=== PATIENT | male | born 1995 | race Caucasian/White ===

== ENCOUNTER 2017-08-08 07:17 | Emergency (ER) | payer SELFPAY ==
[2017-08-08] VITALS (15 sets, daily range): BP systolic 127–137; BP diastolic 77–79; PULSE 64–98; RESP 16–18; TEMP 36.7; O2SAT 98–100; BMI 18.2
--- NOTE | 2017-08-08 07:49 | ED.VISSUMM ---
- ER Visit Summary Date of Service: 08/08/17 Chief Complaint: Depressed with suicidal ideation History of Present Illness: The patient is a 21 M history of depression and bipolar disorder. Multiple prior suicide attempts in the past. His last mental health hospitalization was in [place] a little over a year ago. He states he has been depressed for 5 months. And has been contemplating suicide. Previously he has attempted overdose, hanging, laceration attempts. He has been hospitalized multiple times. Currently he is under no psychiatric care. He states he has a primary care physician but does not remember their name. He does have a plan to overdose if this continues to go on. Physical Examination: Well-appearing young male. Vital signs are stable and afebrile. He does not appear septic or toxic. Currently I do not smell alcohol. I do not see any obvious signs of a toxidrome. He does state he used drugs yesterday. HEENT exam unremarkable. Neck nontender. No signs of trauma. Lungs clear to auscultation bilaterally. Heart regular rate and rhythm no murmur. Abdomen soft and nontender. Normal bowel sounds. He is moving all 4 extremities. They are neurovascularly intact. Nontender without edema. No signs of trauma. He does have track adams in his left antecubital area. Back exam nontender. Neurologically is awake and alert with no focal motor deficits. Test Results: CBC normal. BMP unremarkable except for a potassium of 3.2. Alcohol level negative. Toxicology screen positive for methamphetamines, amphetamines, cannabis and cocaine. Emergency Department Course and Treatment: Patient will undergo ED mental health screening labs and a crisis evaluation. Treatment Plan: Repeat exam patient is doing well at 09 15. Awaiting for crisis evaluation. Disposition: Transfer to a psychiatric facility Impression: Acute depression with suicidal ideation History of depression and bipolar disorder History of prior suicide attempts Illicit drug abuse This note was generated with [employer] dictation software. It may contain incorrect words, spelling, and punctuation that were not noted in review of the chart prior to signing ED Disposition - Plan for ED Patient: Chief Complaint: Suicidal Referrals: Care Physician,No Primary [Primary Care Provider] -
[2017-08-08 07:51] LABS: Absolute Lymphocyte Count 2.05 X10^3/ul (0.83-4.51); Absolute Neutrophil Count 5.8 X10^3/uL (2.0-7.7); Basophil# 0.04 X10^3/uL; Basophil% 0.5 % (0-1); Eosinophil# 0.12 X10^3/uL; Eosinophils% 1.4 % (0-5); Hematocrit 43.4 % (40-54); Hemoglobin 15.7 g/dl (13.0-16.5); Lymphocyte # 2.05 X10^3/ul (4.0); Lymphocyte % 23.7 % (19-41); Mean Corp Hgb Conc 36.2 g/gl (32-36); Mean Corpuscular Hgb 30.8 pg (27.0-32.0); Mean Corpuscular Volume 85.1 fL (80-94); Mean Platelet Vol. 10.7 fl (6.2-12.0); Monocyte# 0.62 X10^3/uL; Monocyte% 7.2 % (0-10); Neutrophil # 5.82 X10^3/uL (2.7-7.7); Neutrophil % 67.1 % (47-70); Platelet Count 245 K/mm3 (150-450); RBC Distribution Width CV 13.3 % (11.6-14.6); White Blood Count 8.7 K/mm3 (4.4-11.0)
[2017-08-08 07:52] LABS: POSITIVE COUNT NO; POSITIVE DIFFERENTIAL NO; POSITIVE MORPHOLOGY NO
[2017-08-08 08:03] LABS: Anion Gap 7 (5-15); BUN 9 mg/dL (7-18); BUN/Creat Ratio 8.7 RATIO (10-20); Calcium,Total 9.3 mg/dL (8.5-10.1); Chloride 100 mmol/L (98-107); Creatinine, Serum 1.04 mg/dL (0.70-1.30); EST Glomerular Filtration Rate 94 mL/min (>60); Est Glom Filt Rate - Afr Amer 114 mL/min (>60); Glucose 73 mg/dL (74-106); Potassium 3.2 mmol/L (3.5-5.1); Sodium Level 137 mmol/L (136-145)
[2017-08-08 08:35] LABS: Alcohol, Blood (Medical)-Serum < 3.0 mg/dL
[2017-08-08 08:46] LABS: Amphetamine Urine VISTA POSITIVE (<1000 ng/mL); Barbiturate Urine VISTA NEGATIVE (< 200 ng/mL); Benzodiazepine Urine VISTA NEGATIVE (< 200 ng/mL); Cocaine Urine VISTA POSITIVE (< 300 ng/mL); Ecstacy Urine VISTA POSITIVE (< 500 ng/mL); Methadone Urine VISTA NEGATIVE (< 300 ng/mL); PCP Urine VISTA NEGATIVE (< 25 ng/mL); THC Urine VISTA POSITIVE (< 50 ng/mL); Vista UDS pH Range 6
--- NOTE | 2017-08-08 09:21 | NURSING ---
CALLED CRISIS, AMMON SHOULD BE ON HER WAY IN TO SEE PATIENT
--- NOTE | 2017-08-08 09:30 | NURSING ---
AMMON, CRISIS, HERE FOR PATIENT
[2017-08-08] MEDS: Ziprasidone IM 20 MG/ML VIAL IM (10:01)
--- NOTE | 2017-08-08 10:01 | ED.RN ---
PT REQUESTING TO LEAVE. PT STATES I DO NOT UNDERSTAND WHY I CAN'T LEAVE I CAME HERE ON MY OWN. THIS NURSE EXPLAINED TO THE PT THAT HE IS PINK SLIPPED AND HE IS NOT ABLE TO LEAVE. PT BECOMING INCREASING AGITATED. THIS NURSE SPOKE WITH THE PT ABOUT GIVING HIM A MEDICATION TO HELP HIM RELAX. PT AGREED TO RECEIVING MIREILLE HICKMAN.
--- NOTE | 2017-08-08 10:21 | ED.RN ---
Mother called hospital stating that the patient keeps calling her and stating that there are men chasing him with baseball bats and dogs. This nurse spoke with the patient regarding continuously calling his mother and patient stated that he will continue to do so. This nurse removed the phone from the patients room at this time. Will reassess patient using it in a few hours. Patient reports understanding on why the phone was removed from his room.
--- NOTE | 2017-08-08 10:44 | EKG12_ITS ---
Test Reason : MENTAL HEALTH Blood Pressure : / mmHG Vent. Rate : 090 BPM Atrial Rate : 090 BPM P-R Int : 124 ms QRS Dur : 100 ms QT Int : 372 ms P-R-T Axes : 053 016 078 degrees QTc Int : 455 ms Poor data quality, interpretation may be adversely affected Normal sinus rhythm with sinus arrhythmia Nonspecific St segment abnormality Confirmed by KAREN SAN, ROSALIA ([id number]), assistant production editor TYSHAWN BEAN ([id number] on 08/10/2017 2:49:35 PM Referred By: MOSES Confirmed By:ROSALIA JONES MD
[2017-08-08 11:07] LABS: AST(SGOT) 20 U/L (15-37); Alanine Aminotransfer ALT/SGPT 30 U/L (16-61); Albumin, Serum 4.9 g/dL (3.2-5.0); Alkaline Phosphatase 62 U/L (45-117); Bilirubin, Direct 0.32 mg/dL (0.00-0.30); Globulin 3.8 g/dL (2.2-4.2); Protein, Total 8.7 g/dL (6.4-8.2)
--- NOTE | 2017-08-08 11:59 | NURSING ---
FAXED EKG AND LIVER PANEL TO [facility]
--- NOTE | 2017-08-08 13:15 | NURSING ---
REFAXED EKG AND LIVER PANEL TO [facility]
--- NOTE | 2017-08-08 14:28 | NURSING ---
CALLED JOESPH MONTOYA. PATIENT IS ACCEPTED, BUT THERE ARE 4 PEOPLE AHEAD OF HIM. SHE SAID MAYBE THIS EVENING.
[2017-08-08] MEDS: DiphenhydrAMINE 25 MG Capsule PO (22:23)
[2017-08-09 00:14] VITALS: RESP 18; O2SAT 97
[2017-08-09 01:37] VITALS: BP 128/66; PULSE 68; RESP 16; O2SAT 100
[2017-08-09 02:02] VITALS: BP 128/66; PULSE 68; RESP 16; O2SAT 100
== END 2017-08-09 02:03 ==
LOC: ED 08:08
PROVIDERS: Emergency Provider Emergency Medicine
DX: F31.9 Bipolar disorder, unspecified (principal); R45.851 Suicidal ideations; F14.10 Cocaine abuse, uncomplicated; F12.10 Cannabis abuse, uncomplicated; Z91.5 Personal history of self-harm; Z72.0 Tobacco use
CPT/HCPCS: 36415; 80048; 80076; 80307; 80320; 85025; 93005; 96372; 99284; G0480; J3486

== ENCOUNTER 2017-08-23 13:16 | Emergency (ER) | payer SELFPAY ==
[2017-08-23 13:17] VITALS: BP 132/81; PULSE 88; RESP 16; TEMP 36.6; O2SAT 97; BMI 19.0
--- NOTE | 2017-08-23 13:30 | ED.VISSUMM ---
- ER Visit Summary Date of Service: 08/23/17 Chief Complaint: Anxiety, neck spasm. History of Present Illness: The patient is a 21 M who presents feeling nervous, he also had an episode of some neck spasm that resolved prior to arrival. This happened about an hour after he got arrested. He is on Geodon and Lamictal. Currently his symptoms are almost fully resolved. No chest pain shortness of breath. No headache or head injury. No vision changes. No history of weakness or neurological deficits. Physical Examination: Not appear in acute distress. Moist mucous membranes, no obvious facial deformity No C-spine tenderness supple neck. No tenderness to palpation. Regular rate and rhythm without any obvious murmurs Clear lungs bilaterally speaking in full sentences without any obvious respiratory distress Abdomen soft and nontender no guarding or rebound Moves all extremities without any difficulty or pain. Skin does not show any obvious rashes or lesions, no trauma. Alert oriented ?3 with no gross focal deficit. No noticed tremor. Emergency Department Course and Treatment: Patient just cried torticollis, this improved. It is possible with Geodon, he is also on Lamictal but this is unlikely agent. Most of his symptoms have improved, and he is mostly asymptomatic. I will treat him symptomatically from the emergency department. He is to watch out in the next few days if this happens again his medications may need to be changed. He understands that if he has fever or chills he is to return to the emergency department right away as this may be a life-threatening symptom. Disposition: Discharge Impression: Anxiety This note was generated with [employer] dictation software. It may contain incorrect words, spelling, and punctuation that were not noted in review of the chart prior to signing ED Disposition - Plan for ED Patient: Disposition: Home or Assisted Living Chief Complaint: General Illness Referrals: Care Physician,No Primary [Primary Care Provider] - 3-5 Days
[2017-08-23] MEDS: LORazepam 0.5 MG Tablet PO (13:33)
== END 2017-08-23 13:46 | disposition home or self-care (01) ==
LOC: ED 13:41
PROVIDERS: Emergency Provider Emergency Medicine
DX: F41.9 Anxiety disorder, unspecified (principal)
CPT/HCPCS: 99283

== ENCOUNTER 2020-03-30 21:06 | Observation (INO) | payer MEDICAID, SELFPAY ==
[2020-03-30 21:07] VITALS: BP 150/94; PULSE 59; RESP 16; TEMP 36; O2SAT 100; BMI 17.9
--- NOTE | 2020-03-30 21:34 | ED.VISSUMM ---
- ER Visit Summary Date of Service: 03/30/20 Chief Complaint: Substance abuse History of Present Illness: The patient is a 24 M with no primary care physician. He reports he was in rehab 3 months ago. Since that time he has been using heroin, methamphetamine, and MDMA. He uses all of these intravenously. His last use of heroin was 12 hours ago. His last use of meth and MDMA was 8 hours ago. He reports that he wants to get clean. He states that he has been at a sober living house for 9 hours. They suggested that he come here because he is going to go through withdrawal. Patient does complain of chills on review of systems. He denies any other complaints. Physical Examination: Vitals: Stable. Afebrile. General: Well-nourished and well-developed. Head: Normocephalic atraumatic. Neck: Supple, no lymphadenopathy. No JVD. Nontender. Cardiovascular: Regular rate and rhythm. No murmurs. Respiratory: No respiratory distress. Clear to auscultation bilaterally. Abdominal: Soft, nontender, nondistended, normal bowel sounds. No guarding, rebound, or peritoneal signs. Back: Nontender. Extremities: Nontender, no edema. Skin: Normal color, no rash. Needle adams to his forearms bilaterally with no erythema, induration, or fluctuance. No evidence of infection. Neurologic: Alert and oriented ?3. Cranial nerves II through XII are intact. Normal strength and sensation. Psych: Normal affect. Test Results: CBC shows monocytes of 13. Chem-7 shows a chloride of 108. LFTs show an ALT of 74 and AST of 44. Alcohol is negative. Talk screen shows amphetamines, methamphetamines, and THC. Emergency Department Course and Treatment: Patient rested comfortably while in the emergency department. Treatment Plan: Patient was discussed with Dr. Anguiano. He will be admitted to the hospital for further relation and treatment. Disposition: Admitted in stable condition. Impression: 1. Polysubstance abuse. This note was generated with [employer] dictation software. It may contain incorrect words, spelling, and punctuation that were not noted in review of the chart prior to signing ED Disposition - Plan for ED Patient: Referrals: Care Physician,No Primary [Primary Care Provider] -
[2020-03-30 22:26] LABS: Absolute Lymphocyte Count 1.94 X10^3/uL (0.83-4.51); Absolute Neutrophil Count 2.9 X10^3/uL (2.0-7.7); Basophil# 0.03 X10^3/uL; Basophil% 0.5 % (0-1); Eosinophil# 0.23 X10^3/uL; Eosinophils% 3.9 % (0-5); Hematocrit 42.5 % (40-54); Hemoglobin 14.2 g/dL (13.0-16.5); Lymphocyte # 1.94 X10^3/ul (4.0); Mean Corp Hgb Conc 33.4 g/dL (32-36); Mean Corpuscular Hgb 29.9 pg (27.0-32.0); Mean Corpuscular Volume 89.5 fL (80-94); Mean Platelet Vol. 10.7 fl (6.2-12.0); Monocyte# 0.75 X10^3/uL; Monocyte% 12.8 % (0-10); NRBC Flagged by Analyzer 0 % (0-5); Neutrophil # 2.91 X10^3/uL (2.7-7.7); Neutrophil % 49.6 % (47-70); Platelet Count 193 K/mm3 (150-450); RBC Distribution Width CV 12.3 % (11.6-14.6); RBC Distribution Width SD 41.1 fl (35.1-43.9); Red Blood Count 4.75 M/mm3 (4.6-6.2); White Blood Count 5.9 K/mm3 (4.4-11.0)
[2020-03-30 22:39] LABS: ALB/GLOB Ratio 1.3 RATIO (0.9-2.4); AST(SGOT) 44 U/L (15-37); Alanine Aminotransfer ALT/SGPT 74 U/L (16-61); Albumin, Serum 4.1 g/dL (3.2-5.0); Alkaline Phosphatase 66 U/L (45-117); Anion Gap 2 (5-15); BUN 15 mg/dL (7-18); BUN/Creat Ratio 15.1 RATIO (10-20); Calcium,Total 8.5 mg/dL (8.5-10.1); Chloride 108 mmol/L (98-107); Creatinine, Serum 0.99 mg/dL (0.70-1.30); EST Glomerular Filtration Rate 97 mL/min (>60); Est Glom Filt Rate - Afr Amer 118 mL/min (>60); Estimated Creatinine Clearance 102.45 ml/min; Globulin 3.1 g/dL (2.2-4.2); Glucose 76 mg/dL (74-106); Potassium 4.4 mmol/L (3.5-5.1); Protein, Total 7.2 g/dL (6.4-8.2); Sodium Level 140 mmol/L (136-145)
[2020-03-30 22:51] LABS: Amphetamine Urine VISTA POSITIVE (<1000 ng/mL); Barbiturate Urine VISTA NEGATIVE (< 200 ng/mL); Benzodiazepine Urine VISTA NEGATIVE (< 200 ng/mL); Cocaine Urine VISTA NEGATIVE (< 300 ng/mL); Ecstacy Urine VISTA POSITIVE (< 500 ng/mL); Methadone Urine VISTA NEGATIVE (< 300 ng/mL); PCP Urine VISTA NEGATIVE (< 25 ng/mL); THC Urine VISTA POSITIVE (< 50 ng/mL); Vista UDS pH Range 5
--- NOTE | 2020-03-30 23:40 | PCM.HP.STD ---
Problem List (1) Polysubstance dependence Status: Acute History of Present Illness Date of Admission: 03/30/20 Chief Complaint: Withdrawal symptoms The patient is a 24 year old M with a significant history of polysubstance abuse; and asthma who presents to the emergency department with withdrawal symptoms. Patient's drugs of choice is methamphetamine and heroin. He eats and shoots methamphetamine. Last methamphetamine use was on the day of presentation. He reports that his methamphetamine might be laced with MDMA. He shoots heroin. Last heroin use was a day before presentation. He use about half a gram of heroin a day. Also he smokes tobacco and marijuana. Reportedly he was at a drug rehabilitation about 2 months ago. From there he went to a sober living on the same day of presentation and he was encouraged to come to the emergency department for withdrawal as he was having withdrawal symptoms. He reports his withdrawal symptoms as chills and clamminess. Past Medical History Medical History: Medical History (Last Updated 03/31/20 @ 00:[address] Roddy Anguiano MD) Asthma J45.909 Allergies Sulfa (Sulfonamide Antibiotics) Allergy (Verified 03/30/20 21:09) Swelling Surgical History: no surgical history Smoking Status: Current every day smoker Tobacco Use: Cigarettes Drugs: Heroin, Marijuana - *Family History Maternal History Items: - - Drug abuse Paternal History Items: - - Drug abuse Review of Systems Constitutional: Reports: Chills. Denies: Fever, Weight Change HEENT: Denies: Head Aches, Sinus Congestion, Sinus Drainage Cardiovascular: Denies: Chest Pain, Palpitations Respiratory: Denies: Cough, Shortness of breath at rest, Sputum production Gastrointestinal: Denies: Abdominal Pain, Nausea, Vomiting Genitourinary: Denies: Dysuria Musculoskeletal: Denies: Joint Pain, Joint Tenderness Skin: Denies: Rash, Wounds Neurological: Denies: Numbness, Tingling, Focal weakness Psychiatric: Denies: Anxiety, Depression, Homicidal Ideations, Suicidal Ideations Hematologic/ Lymphatic: Denies: Easy Bruising, Easy Bleeding VTE Information - Inpt Only VTE Present on Admission: No VTE Mechan Device Prophylaxis: None VTE Pharm Prophylaxis ordered?: No Reason prophylaxis not ordered:: Treatment Not Indicated - Low risk; encourage to ambulate. Patient Problems: Active and Suspected Problems (Last Updated 03/31/20 @ 00:[address] Roddy Anguiano MD) Polysubstance dependence (Acute) - Physical Exam Vitals/I&O's: Vital Signs Temp Pulse Resp BP Pulse Ox 96.8 F L 59 L 16 150/94 H 100 03/30/20 21:07 03/30/20 21:07 03/30/20 21:07 03/30/20 21:07 03/30/20 21:07 Oxygen Delivery Method Room Air Weight: 63.503 kg Body Mass Index (BMI) 17.9 Finger Stick Blood Glucose 82 General: Alert, Oriented x3, Cooperative HEENT: Atraumatic, PERRLA, EOMI, Normocephalic Oral: - - Edentulous Neck: Supple, No JVD, Negative Carotid Bruits Lungs: Clear to auscultation, Normal air movement Cardiovascular: Regular rate, Normal S1, Normal S2, No murmurs Abdomen: Bowel Sounds Present, Soft, Non Tender Extremities: No edema, Capillary Refill Less than 3 Seconds Skin: No rashes, No breakdown Musculoskeletal: No Tenderness to Palpation of Joints or Extremities Neurological: Cranial nerves II-XII grossly intact Psych/Mental Status: Normal Affect, Appropriate Laboratory Results 03/30/20 22:04: Urine Opiates Screen NEGATIVE, Urine Methadone Screen NEGATIVE, Ur Barbiturates Screen NEGATIVE, Ur Phencyclidine Scrn NEGATIVE, Ur Amphetamines Screen POSITIVE H, U Methamphetamin-MDMA POSITIVE H, U Benzodiazepines Scrn NEGATIVE, Urine Cocaine Screen NEGATIVE, U Cannabinoids Screen POSITIVE H, Ur Drug Screen Comment 03/30/20 22:11: WBC 5.9, RBC 4.75, Hgb 14.2, Hct 42.5, MCV 89.5, MCH 29.9, MCHC 33.4, RDW Std Deviation 41.1, RDW Coeff of Gabe 12.3, Plt Count 193, MPV 10.7, Immature Gran % (Auto) 0.200, Neut % (Auto) 49.6, Lymph % (Auto) 33.0, [place] % (Auto) 12.8 H, Eos % (Auto) 3.9, Baso % (Auto) 0.5, Absolute Neuts (auto) 2.9, Absolute Lymphs (auto) 1.94, Nucleated RBC % 0 03/30/20 22:11: Sodium 140, Potassium 4.4, Chloride 108 H, Carbon Dioxide 30.0, Anion Gap 2 L, BUN 15, Creatinine 0.99, Estim Creat Clear Calc 102.45, Est GFR (MDRD) Af Amer 118, Est GFR (MDRD) Non-Af 97, BUN/Creatinine Ratio 15.1, Glucose 76, Calcium 8.5, Total Bilirubin 0.50, AST 44 H, ALT 74 H, Alkaline Phosphatase 66, Total Protein 7.2, Albumin 4.1, Globulin 3.1, Albumin/Globulin Ratio 1.3 03/30/20 22:11: Ethyl Alcohol 3.0 Assessment/Plan All Active Problems (Last Updated 03/31/20 @ 00:[address] Roddy Anguiano MD) Polysubstance dependence (Acute) The patient is a 24 year old M with a significant history of heroine IV drug use; MD use; methamphetamine use; marijuana use and tobacco abuse; who presents to the emergency department with drug withdrawal symptoms. Opioid dependence and withdrawal Emergency department labs were reviewed. Urine toxicology was positive for amphetamines; MDMA; and cannabinoids. Patient will be started on Subutex and other adjunctive medications: Gabapentin as needed; dicyclomine as needed; Vistaril as needed; methocarbamol as needed; clonidine as needed; Imodium as needed; trazodone as needed and Zofran as needed. Monitor COWS and CINA score Tobacco abuse Counseled Nicotine patch prescribed. Elevated liver enzymes We will check hepatitis panel. Trend liver enzymes Mild protein calorie malnutrition BMI of 18. Dietitian consult Ensure Enlive ordered. Methamphetamine abuse/marijuana abuse Counselled. DVT prophylaxis Low risk Encourage to ambulate Inpatient E&M: 54422 Init Hosp L3
[2020-03-31] VITALS (7 sets, daily range): BP systolic 99–150; BP diastolic 50–94; PULSE 50–65; RESP 16–20; TEMP 36.3–36.8; O2SAT 95–98; BMI 17.9; BMI 18.0
[2020-03-31] MEDS: Buprenorphine HCl 2 MG TAB.SUBL SL ×3 (02:04→17:44)
[2020-03-31] MEDS: Dicyclomine 10 MG Capsule 20 MG PO (02:04)
[2020-03-31] MEDS: cloNIDine HCl 0.1 MG Tablet PO (02:05)
[2020-03-31] MEDS: traZODone 100 MG Tablet PO ×2 (02:05→20:37)
[2020-03-31] MEDS: Methocarbamol 750 MG Tablet 1500 MG PO ×3 (02:05→20:37)
[2020-03-31] MEDS: hydrOXYzine PAM 25 MG Capsule 50 MG PO ×3 (02:06→20:37)
[2020-03-31 07:29] LABS: AST(SGOT) 36 U/L (15-37); Alanine Aminotransfer ALT/SGPT 65 U/L (16-61); Albumin, Serum 3.5 g/dL (3.2-5.0); Alkaline Phosphatase 52 U/L (45-117); Bilirubin, Direct 0.17 mg/dL (0.00-0.30); Globulin 2.6 g/dL (2.2-4.2); Protein, Total 6.1 g/dL (6.4-8.2)
[2020-03-31] MEDS: Gabapentin 300 MG Capsule PO (08:40)
--- NOTE | 2020-03-31 10:03 | ADDICTION ---
This financial writer attempted to meet with PT in his room. PT did not rouse to 3x attempts at verbal queuing. This financial writer will attempt to meet with PT on 04/01/20.
--- NOTE | 2020-03-31 11:07 | NT.THERAPY_ITS ---
Nutrition Therapy Report - History Nutrition Services has been consulted to:: Manage nutrient details of diet order Current diet / nutrition support order:: Regular diet; 120 ml ensure enlive 4 x daily w/ medpass - Anthropometric Measurements Height:: 6 ft 2 in Weight:: 63.5 kg Body Mass Index (BMI):: 17.9 - Relevant Labs Relevant Labs:: [place] % (Auto) 12.8 % (0-10) H 03/30/20 22:11 Chloride 108 mmol/L (98-107) H 03/30/20 22:11 Anion Gap 2 (5-15) L 03/30/20 22:11 AST 44 U/L (15-37) H 03/30/20 22:11 ALT 65 U/L (16-61) H 03/31/20 06:31 Total Protein 6.1 g/dL (6.4-8.2) L 03/31/20 06:31 - Assessment Food / Nutrition-Related History:: Pt reports UBW~190 lbs approx~2 mos ago last time he left rehab; calculated~26% wt loss x 2 months due to drug abuse. Wt loss is significant for malnutrition. Concerning that wt on admit was stated not actual--will need weight as able. Pt reports appetite seems to be improving and took~75% of breakfast this morning and accepting of ensure enlive but, would like the shakes with his meals, not w/ medpass. 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 Pt denies difficulty chewing/swallowing. - Nutrition Diagnosis Problem / Etiology / Signs & Symptoms (PES):: Severe pro/dev malnutrition in the context of social circumstance related to drug abuse and inadequate energy intake as evidenced by ~26% wt loss x past 2 months. Evidence of Malnutrition Exists:: Yes Severe PCM:: Social & Environmental circumstances - Nutrition Intervention Nutrition Prescription:: Estimated Nutrition Needs~8101-5687 kcal/day (30 kcal/Kg +250 kcal) for wt gain and ~70-80 gm protein (1.2 gm pro/Kg) per day for repletion. - Food / Nutrient Delivery Interventions Summary of nutrition intervention:: Continue regular diet and snacks 3-4 times per day. Will change ensure enlive from 120 ml 4 times per day w/ medpass to 240 ml ensure enlive TID w/ meals as per pt request. 240 ml ensure enlive x 3 will provide additional 1050 kcal and 60 gm protein. Nutrition support ordered as / adjusted to:: no nutrition support. Encouraged increased intake at meals & 100% intake of ONS as ordered. Nutrition education provided?: Yes - MNT Monitoring Further MNT monitoring and evaluation required?: Yes MNT Follow-up in:: 3-5 days
--- NOTE | 2020-03-31 12:49 | CHAPLAIN ---
Type of Pastoral Visit _x__ Initial Visit ___ Follow-up Visit ___ On-call Visit ___ General Patient Visit ___ Spiritual Assessment ___ Family Conference ___ Bereavement ___ Rapid Response ___ Code Blue ___ Other (describe below) Pastoral Care Referral From _x__ Patient ___ Family ___ Nurse ___ Physician ___ Oil Exploration Engineer ___ Correction Officer [place] [facility] ___ Other (describe below) Sacrament/Intervention _x__ Active listening ___ Anointing ___ Moravian ___ Bereavement ___ Communion _x__ Linda exploration ___ _x__ Life review _x__ Prayer ___ Reconciliation ___ Sacrament of Sick _x__ Supportive presence ___ Wedding ___ Other (describe below) Pastoral Comments
--- NOTE | 2020-03-31 15:23 | PN_ITS ---
Patient Problems: Active and Suspected Problems (Last Updated 03/31/20 @ 00:[address] Roddy Anguiano MD) Polysubstance dependence (Acute) Subjective: Feeling better overall. Less anxious. Vitals/I&O's: Vital Signs Temp Pulse Resp BP Pulse Ox 36.8 C 59 L 18 114/62 97 03/31/20 12:50 03/31/20 12:50 03/31/20 12:50 03/31/20 12:50 03/31/20 12:50 Oxygen Delivery Method Room Air Weight: 63.5 kg Body Mass Index (BMI) 17.9 Finger Stick Blood Glucose 82 Intake and Output for Last 24 Hours 03/29/20 03/30/20 03/31/20 23:59 23:59 23:59 Intake Total 200 / 200 Balance 200 / 200 General: Alert, No apparent distress HEENT: Atraumatic, Normocephalic Extremities: No edema Psych/Mental Status: Appropriate, Anxious Laboratory Results 03/30/20 22:04: Urine Opiates Screen NEGATIVE, Urine Methadone Screen NEGATIVE, Ur Barbiturates Screen NEGATIVE, Ur Phencyclidine Scrn NEGATIVE, Ur Amphetamines Screen POSITIVE H, U Methamphetamin-MDMA POSITIVE H, U Benzodiazepines Scrn NEGATIVE, Urine Cocaine Screen NEGATIVE, U Cannabinoids Screen POSITIVE H, Ur Drug Screen Comment 03/30/20 22:11: WBC 5.9, RBC 4.75, Hgb 14.2, Hct 42.5, MCV 89.5, MCH 29.9, MCHC 33.4, RDW Std Deviation 41.1, RDW Coeff of Gabe 12.3, Plt Count 193, MPV 10.7, I mmature Gran % (Auto) 0.200, Neut % (Auto) 49.6, Lymph % (Auto) 33.0, [place] % (Auto) 12.8 H, Eos % (Auto) 3.9, Baso % (Auto) 0.5, Absolute Neuts (auto) 2.9, Absolute Lymphs (auto) 1.94, Nucleated RBC % 0 03/30/20 22:11: Sodium 140, Potassium 4.4, Chloride 108 H, Carbon Dioxide 30.0, Anion Gap 2 L, BUN 15, Creatinine 0.99, Estim Creat Clear Calc 102.45, Est GFR (MDRD) Af Amer 118, Est GFR (MDRD) Non-Af 97, BUN/Creatinine Ratio 15.1, Glucose 76, Calcium 8.5, Total Bilirubin 0.50, AST 44 H, ALT 74 H, Alkaline Phosphatase 66, Total Protein 7.2, Albumin 4.1, Globulin 3.1, Albumin/Globulin Ratio 1.3 03/30/20 22:11: Ethyl Alcohol 3.0 03/31/20 06:31: Hepatitis A IgM Ab Pending, Hep Bs Antigen Pending, Hep B Core IgM Ab Pending, Hepatitis C Ab (EIA) Pending 03/31/20 06:31: Total Bilirubin 0.60, Direct Bilirubin 0.17, AST 36, ALT 65 H, Alkaline Phosphatase 52, Total Protein 6.1 L, Albumin 3.5, Globulin 2.6 Current Medications Acetaminophen (Acetaminophen 325 Mg Tablet) 650 mg PO Q6H PRN PRN PRN Reason: Pain Score 1-10/Temp > 100.7 F Buprenorphine HCl (Buprenorphine Hcl 2 Mg Tab.Subl) 4 mg SL Q8H JANETT; Taper Stop: 04/03/20 01:59 Last Admin: 03/31/20 09:55 Dose: 4 mg Documented by: Clonidine (Clonidine Hcl 0.1 Mg Tablet) 0.1 mg PO Q8H PRN PRN PRN Reason: RESTLESSNESS Last Admin: 03/31/20 02:05 Dose: 0.1 mg Documented by: Dicyclomine HCl (Dicyclomine 10 Mg Capsule) 20 mg PO Q6H PRN PRN PRN Reason: Abdominal Discomfort Last Admin: 03/31/20 02:04 Dose: 20 mg Documented by: Gabapentin (Gabapentin 300 Mg Capsule) 300 mg PO Q8H PRN PRN PRN Reason: moderate to severe anxiety Last Admin: 03/31/20 08:40 Dose: 300 mg Documented by: Hydroxyzine Pamoate (Hydroxyzine Emily 25 Mg Capsule) 50 mg PO Q6H PRN PRN PRN Reason: mild anxiety Last Admin: 03/31/20 12:56 Dose: 50 mg Documented by: Loperamide HCl (Loperamide 2 Mg Capsule) 2 mg PO Q4H PRN PRN PRN Reason: LOOSE STOOLS Melatonin (Melatonin 3 Mg Tablet) 3 mg PO QHS PRN PRN PRN Reason: INSOMNIA Methocarbamol (Methocarbamol 750 Mg Tablet) 1,500 mg PO Q6H PRN PRN PRN Reason: MUSCLE SPASM Last Admin: 03/31/20 12:56 Dose: 1,500 mg Documented by: Nicotine (Nicotine 14 Mg Patch) 14 mg TD DAILY JANETT Last Admin: 03/31/20 09:55 Dose: Not Given Documented by: Ondansetron HCl (Ondansetron 8 Mg Tablet) 8 mg PO Q8H PRN PRN PRN Reason: NAUSEA Ondansetron HCl (Ondansetron 4 Mg/2 Ml Vial) 4 mg IV Q8H PRN PRN PRN Reason: NAUSEA/VOMITING Senna/Docusate Sodium (Senna/Docusate Sodium 1 Tablet) 2 tablet PO BID PRN PRN PRN Reason: Constipation Sodium Chloride (0.9% Saline Lock 10 Ml Syringe) 10 - 40 ml IV UD PRN PRN Reason: SALINE FLUSH Trazodone HCl (Trazodone 100 Mg Tablet) 100 mg PO QHS PRN PRN PRN Reason: INSOMNIA Last Admin: 03/31/20 02:05 Dose: 100 mg Documented by: STROKE Vital Signs/Narrative: Vital Signs Temp Pulse Resp BP Pulse Ox 03/31/20 12:50 36.8 C 59 L 18 114/62 97 Medical Necessity - Tobacco Use Smoking Status: Current every day smoker Tobacco Use: Cigarettes Assessment/Plan All Active Problems (Last Updated 03/31/20 @ 00:[address] Roddy Anguiano MD) Polysubstance dependence (Acute) 1. acute opiate withdrawal * on buprenorphine taper + additional PRN agent for somatic complaints. * addiction medicine was not able arouse patient today. Will reevaluate on 04/01 2. VTE prophylaxis: not indicated. Inpatient E&M: 24663 Subs Hosp L1
[2020-04-01 02:00] VITALS: BP 128/75; PULSE 83; RESP 16; TEMP 37.7; O2SAT 95
[2020-04-01] MEDS: Acetaminophen 325 MG Tablet 650 MG PO (02:32)
[2020-04-01] MEDS: Buprenorphine HCl 2 MG TAB.SUBL SL ×2 (02:32→11:12)
[2020-04-01 05:06] LABS: HEPATITIS B SURFACE AG Negative (Negative); Hepatitis A IgM Antibody Negative (Negative); Hepatitis B Core AB IgM Negative (Negative)
[2020-04-01 07:40] VITALS: O2SAT 92
[2020-04-01 09:26] VITALS: BP 116/46; PULSE 65; RESP 16; TEMP 37.2; O2SAT 93
--- NOTE | 2020-04-01 10:13 | ADDICTION ---
This typewriters functional tester attempted to meet with PT in his room. PT was extremely agitated and did not participate appropriately with this typewriters functional tester. This typewriters functional tester attempted to process assessments with PT but he refused to engage appropriately and told this typewriters functional tester to leave his room. PT reported that he plans to follow-up with [facility] and requested to discharge from [facility] immediately. This typewriters functional tester informed PT's nurse. Assessments were not completed due to PT refusal.
--- NOTE | 2020-04-01 10:30 | NURSING ---
Veronica from [facility] told this RN that patient wanted to leave. When entering room patient expressed his frustration with not wanting to answer any of Veronica's questions. This RN educated patient that we are all trying to get a safe and appropriate dc plan together so he can be successful outside of [facility]. This RN asked patient if he wishes to leave and he states he does not. Will cont to monitor.
--- NOTE | 2020-04-01 12:01 | PN_ITS ---
Patient Problems: Active and Suspected Problems (Last Updated 03/31/20 @ 00:[address] Roddy Anguiano MD) Polysubstance dependence (Acute) Subjective: Upset about being woken up. Overall, feeling better. Vitals/I&O's: Vital Signs Temp Pulse Resp BP Pulse Ox 37.2 C 65 16 116/46 L 93 04/01/20 09:26 04/01/20 09:26 04/01/20 09:26 04/01/20 09:26 04/01/20 09:26 Oxygen Delivery Method Room Air Weight: 63.5 kg Body Mass Index (BMI) 17.9 Finger Stick Blood Glucose 82 Intake and Output for Last 24 Hours 03/30/20 03/31/20 04/01/20 23:59 23:59 23:59 Intake Total 200 / 500 600 / 600 Balance 200 / 500 600 / 600 General: Alert, No apparent distress, - - when he was woken up, he slapped his head on sides of his head. eventually calmed down. HEENT: Atraumatic, Normocephalic Psych/Mental Status: Normal Affect, Appropriate Current Medications Acetaminophen (Acetaminophen 325 Mg Tablet) 650 mg PO Q6H PRN PRN PRN Reason: Pain Score 1-10/Temp > 100.7 F Last Admin: 04/01/20 02:32 Dose: 650 mg Documented by: Buprenorphine HCl (Buprenorphine Hcl 2 Mg Tab.Subl) 2 mg SL Q8H JANETT; Taper Stop: 04/03/20 01:59 Last Admin: 04/01/20 11:12 Dose: 2 mg Documented by: Clonidine (Clonidine Hcl 0.1 Mg Tablet) 0.1 mg PO Q8H PRN PRN PRN Reason: RESTLESSNESS Last Admin: 03/31/20 02:05 Dose: 0.1 mg Documented by: Dicyclomine HCl (Dicyclomine 10 Mg Capsule) 20 mg PO Q6H PRN PRN PRN Reason: Abdominal Discomfort Last Admin: 03/31/20 02:04 Dose: 20 mg Documented by: Gabapentin (Gabapentin 300 Mg Capsule) 300 mg PO Q8H PRN PRN PRN Reason: moderate to severe anxiety Last Admin: 03/31/20 08:40 Dose: 300 mg Documented by: Hydroxyzine Pamoate (Hydroxyzine Emily 25 Mg Capsule) 50 mg PO Q6H PRN PRN PRN Reason: mild anxiety Last Admin: 03/31/20 20:37 Dose: 50 mg Documented by: Loperamide HCl (Loperamide 2 Mg Capsule) 2 mg PO Q4H PRN PRN PRN Reason: LOOSE STOOLS Melatonin (Melatonin 3 Mg Tablet) 3 mg PO QHS PRN PRN PRN Reason: INSOMNIA Methocarbamol (Methocarbamol 750 Mg Tablet) 1,500 mg PO Q6H PRN PRN PRN Reason: MUSCLE SPASM Last Admin: 03/31/20 20:37 Dose: 1,500 mg Documented by: Nicotine (Nicotine 14 Mg Patch) 14 mg TD DAILY JANETT Last Admin: 04/01/20 11:10 Dose: Not Given Documented by: Ondansetron HCl (Ondansetron 8 Mg Tablet) 8 mg PO Q8H PRN PRN PRN Reason: NAUSEA Ondansetron HCl (Ondansetron 4 Mg/2 Ml Vial) 4 mg IV Q8H PRN PRN PRN Reason: NAUSEA/VOMITING Senna/Docusate Sodium (Senna/Docusate Sodium 1 Tablet) 2 tablet PO BID PRN PRN PRN Reason: Constipation Sodium Chloride (0.9% Saline Lock 10 Ml Syringe) 10 - 40 ml IV UD PRN PRN Reason: SALINE FLUSH Trazodone HCl (Trazodone 100 Mg Tablet) 100 mg PO QHS PRN PRN PRN Reason: INSOMNIA Last Admin: 03/31/20 20:37 Dose: 100 mg Documented by: STROKE Vital Signs/Narrative: Vital Signs Temp Pulse Resp BP Pulse Ox 04/01/20 09:26 37.2 C 65 16 116/46 L 93 Medical Necessity - Tobacco Use Smoking Status: Current every day smoker Tobacco Use: Cigarettes Assessment/Plan All Active Problems (Last Updated 03/31/20 @ 00:[address] Roddy Anguiano MD) Polysubstance dependence (Acute) 1. acute opiate withdrawal * on buprenorphine taper + additional PRN agent for somatic complaints. * addiction medicine was not able arouse patient today. Will reevaluate on 04/01 2. VTE prophylaxis: not indicated. Inpatient E&M: 39503 [facility] Hosp L1
[2020-04-01 13:35] LABS: Hep C Antibodies >11.0 s/co ratio (0.0-0.9)
[2020-04-01 14:35] VITALS: BP 107/59; PULSE 58; RESP 14; TEMP 36.7; O2SAT 96
[2020-04-01 17:39] VITALS: BP 110/60; PULSE 61; RESP 16; TEMP 36.8; O2SAT 96
[2020-04-01 20:35] VITALS: BP 108/54; PULSE 72; RESP 16; TEMP 37.2; O2SAT 96
[2020-04-02 02:15] VITALS: BP 123/55; PULSE 65; RESP 16; TEMP 36.9; O2SAT 95
[2020-04-02] MEDS: Buprenorphine HCl 2 MG TAB.SUBL SL (02:24)
[2020-04-02 08:00] VITALS: BP 114/67; PULSE 67; RESP 14; TEMP 36.9; O2SAT 94
[2020-04-02] MEDS: Senna/Docusate Sodium 1 Tablet 2 TABLET PO (08:18)
--- NOTE | 2020-04-02 08:47 | DCINST_ITS ---
- Discharge Diagnoses Current Active Problems: Current Active and Chronic Problems (Last Updated 03/31/20 @ 00:[address] Roddy Anguiano MD) Polysubstance dependence (Acute) You will use the following diet at home:: No restrictions, Regular Allergies/Adverse Reactions: Allergies Sulfa (Sulfonamide Antibiotics) Allergy (Verified 03/30/20 21:09) Swelling Primary Care Physician: Care Physician,No Primary [Primary Care Provider] - Test Results: Test results from this visit will be discussed in further detail at your follow- up appointment, if applicable. Please Follow Up With: [facility] When: call today Proposed Discharge Date: 04/02/20
--- NOTE | 2020-04-02 08:49 | PCM.DC.SUM ---
Discharge Date and Diagnosis - Problem List Patient Problems: Active and Suspected Problems (Last Updated 03/31/20 @ 00:[address] Roddy Anguiano MD) Polysubstance dependence (Acute) Date of Admission: 03/30/20 Date of Discharge: 04/02/20 - Primary Discharge Diagnosis Acute Problems: Active Problems (Last Updated 03/31/20 @ 00:[address] Roddy Anguiano MD) Polysubstance dependence (Acute) Hospital Course and Treatment Operations: None Procedures: None Summary of Care Provided: The patient is a 24 year old M presents seeking treatment for polysubstance abuse. Patient uses methamphetamines and heroin. He stated that the methamphetamine might have been laced with MDMA. Drug screen was positive for cannabinoids, MDMA and amphetamines. Patient was treated for acute opiate withdrawal with buprenorphine. Patient overall improved, however he was not without behavioral issues. 1 morning waking the patient up he immediately slapped his head on both sides with his hands and stated that he does not like being woken up but he was consolable afterwards. Patient was reticent to talk to addiction medicine but did tell addiction medicine that he would be following up with the program [facility]. Patient be making phone call today as he has finally completed his detoxification. [] Patient Problems: Active and Suspected Problems (Last Updated 03/31/20 @ 00:[address] Roddy Anguiano MD) Polysubstance dependence (Acute) - Physical Exam Vitals/I&O's: Vital Signs Temp Pulse Resp BP Pulse Ox 36.9 C 67 14 114/67 94 04/02/20 08:00 04/02/20 08:00 04/02/20 08:00 04/02/20 08:00 04/02/20 08:00 Oxygen Delivery Method Room Air Weight: 63.5 kg Body Mass Index (BMI) 17.9 Finger Stick Blood Glucose 82 Intake and Output for Last 24 Hours 03/31/20 04/01/20 04/02/20 23:59 23:59 23:59 Intake Total 200 / 500 900 / 900 Balance 200 / 500 900 / 900 General: Alert, No apparent distress HEENT: Atraumatic, Normocephalic Laboratory Results 03/31/20 06:31: Hepatitis A IgM Ab Negative, Hep Bs Antigen Negative, Hep B Core IgM Ab Negative, Hepatitis C Ab (EIA) >11.0 H Current Medications Acetaminophen (Acetaminophen 325 Mg Tablet) 650 mg PO Q6H PRN PRN PRN Reason: Pain Score 1-10/Temp > 100.7 F Last Admin: 04/01/20 02:32 Dose: 650 mg Documented by: Buprenorphine HCl (Buprenorphine Hcl 2 Mg Tab.Subl) 2 mg SL Q12H JANETT; Taper Stop: 04/03/20 01:59 Last Admin: 04/02/20 02:24 Dose: 2 mg Documented by: Clonidine (Clonidine Hcl 0.1 Mg Tablet) 0.1 mg PO Q8H PRN PRN PRN Reason: RESTLESSNESS Last Admin: 03/31/20 02:05 Dose: 0.1 mg Documented by: Dicyclomine HCl (Dicyclomine 10 Mg Capsule) 20 mg PO Q6H PRN PRN PRN Reason: Abdominal Discomfort Last Admin: 03/31/20 02:04 Dose: 20 mg Documented by: Gabapentin (Gabapentin 300 Mg Capsule) 300 mg PO Q8H PRN PRN PRN Reason: moderate to severe anxiety Last Admin: 03/31/20 08:40 Dose: 300 mg Documented by: Hydroxyzine Pamoate (Hydroxyzine Emily 25 Mg Capsule) 50 mg PO Q6H PRN PRN PRN Reason: mild anxiety Last Admin: 03/31/20 20:37 Dose: 50 mg Documented by: Loperamide HCl (Loperamide 2 Mg Capsule) 2 mg PO Q4H PRN PRN PRN Reason: LOOSE STOOLS Melatonin (Melatonin 3 Mg Tablet) 3 mg PO QHS PRN PRN PRN Reason: INSOMNIA Methocarbamol (Methocarbamol 750 Mg Tablet) 1,500 mg PO Q6H PRN PRN PRN Reason: MUSCLE SPASM Last Admin: 03/31/20 20:37 Dose: 1,500 mg Documented by: Nicotine (Nicotine 14 Mg Patch) 14 mg TD DAILY JANETT Last Admin: 04/02/20 08:14 Dose: Not Given Documented by: Ondansetron HCl (Ondansetron 8 Mg Tablet) 8 mg PO Q8H PRN PRN PRN Reason: NAUSEA Ondansetron HCl (Ondansetron 4 Mg/2 Ml Vial) 4 mg IV Q8H PRN PRN PRN Reason: NAUSEA/VOMITING Senna/Docusate Sodium (Senna/Docusate Sodium 1 Tablet) 2 tablet PO BID PRN PRN PRN Reason: Constipation Last Admin: 04/02/20 08:18 Dose: 2 tablet Documented by: Sodium Chloride (0.9% Saline Lock 10 Ml Syringe) 10 - 40 ml IV UD PRN PRN Reason: SALINE FLUSH Trazodone HCl (Trazodone 100 Mg Tablet) 100 mg PO QHS PRN PRN PRN Reason: INSOMNIA Last Admin: 03/31/20 20:37 Dose: 100 mg Documented by: Discharge Diet: No Restrictions Discharge Activity: Return to Normal Activity Primary Care Physician: Care Physician,No Primary [Primary Care Provider] - Please Follow Up With: [facility] When: call today Disposition: Home Minutes spent on discharge:: 24 Patient Condition:: Good Medical Necessity - Tobacco Use Smoking Status: Current every day smoker Tobacco Use: Cigarettes Meaningful Use Info Meaningful Use Diagnoses (Choose all that apply): None applicable Inpatient E&M: 71231 [facility] Hosp
== END 2020-04-02 10:12 | disposition home or self-care (01) ==
LOC: ED 22:07 → MS3 03-31 07:01
PROVIDERS: Admitting Provider Hospitalist; Emergency Provider Emergency Medicine
DX: F11.23 Opioid dependence with withdrawal (principal); F15.10 Other stimulant abuse, uncomplicated; F17.210 Nicotine dependence, cigarettes, uncomplicated; J45.909 Unspecified asthma, uncomplicated; E44.1 Mild protein-calorie malnutrition; Z68.1 Body mass index [BMI] 19.9 or less, adult; F12.10 Cannabis abuse, uncomplicated
CPT/HCPCS: 36415; 80053; 80074; 80076; 80307; 82077; 85025; 97802; 99218; 99281; 99283; H0012; G0378

== ENCOUNTER → 2020-06-09 14:56 | Outpatient (CLI) | payer MEDICAID, SELFPAY ==
[2020-03-31 11:08] VITALS: BMI 17.9
[2020-06-09 16:18] LABS: Absolute Lymphocyte Count 2.94 X10^3/uL (0.83-4.51); Absolute Neutrophil Count 4.8 X10^3/uL (2.0-7.7); Basophil# 0.04 X10^3/uL; Basophil% 0.5 % (0-1); Eosinophil# 0.26 X10^3/uL; Hematocrit 47.1 % (40-54); Hemoglobin 15.6 g/dL (13.0-16.5); Lymphocyte # 2.94 X10^3/ul (0.83-4.51); Lymphocyte % 34.1 % (19-41); Mean Corp Hgb Conc 33.1 g/dL (32-36); Mean Corpuscular Hgb 29.3 pg (27.0-32.0); Mean Corpuscular Volume 88.5 fL (80-94); Monocyte# 0.52 X10^3/uL; NRBC Flagged by Analyzer 0 % (0-5); Neutrophil # 4.84 X10^3/uL (2.7-7.7); Neutrophil % 56.1 % (47-70); Platelet Count 271 K/mm3 (150-450); RBC Distribution Width CV 12.8 % (11.6-14.6); RBC Distribution Width SD 41.7 fl (35.1-43.9); Red Blood Count 5.32 M/mm3 (4.6-6.2); White Blood Count 8.6 K/mm3 (4.4-11.0)
[2020-06-09 16:26] LABS: International Normalized Ratio 1.1; Prothrombin Time (Protime)PT. 13.4 SECONDS (11.7-14.9)
[2020-06-09 17:09] LABS: ALB/GLOB Ratio 1.2 RATIO (0.9-2.4); AST(SGOT) 28 U/L (15-37); Alanine Aminotransfer ALT/SGPT 49 U/L (16-61); Albumin, Serum 4.5 g/dL (3.2-5.0); Alkaline Phosphatase 56 U/L (45-117); Anion Gap 8 (5-15); BUN 17 mg/dL (7-18); BUN/Creat Ratio 18.9 RATIO (10-20); Chloride 103 mmol/L (98-107); Cholesterol 166 mg/dL (200); EST Glomerular Filtration Rate 109 mL/min (>60); Est Glom Filt Rate - Afr Amer 132 mL/min (>60); Globulin 3.7 g/dL (2.2-4.2); Glucose 83 mg/dL (74-106); High Density Lipoprotein 65 mg/dL; Potassium 3.8 mmol/L (3.5-5.1); Protein, Total 8.2 g/dL (6.4-8.2); Sodium Level 137 mmol/L (136-145); Thyroid Stim Hormone (TSH) 1.07 uIU/mL (0.358-3.74); Triglycerides 62 mg/dL; Very Low Density Lipoprotein 12 mg/dL (5-40)
[2020-06-10 08:47] LABS: HIV - WCH Non-Reactive (Nonreactive); Hepatitis B Surface Antibody Reactive; Syphilis Antibodies Non-reactive
[2020-06-12 19:50] LABS: HIV-1 RNA by PCR, Quant. < 20 copies/mL (.)
[2020-06-14 03:06] LABS: HCV Quant. RNA PCR 1550 IU/mL (.)
[2020-06-14 09:28] LABS: Hepatitis A AB, Total Positive (Negative)
== END ==
PROVIDERS: Referring Provider Nurse Practitioner Adult Health; Visit Provider Nurse Practitioner Adult Health
DX: K73.9 Chronic hepatitis, unspecified (principal)
CPT/HCPCS: 36415; 80053; 80061; 84443; 85025; 85610; 86703; 86706; 86708; 86780; 87522; 87536; 87902

== ENCOUNTER → 2020-07-12 07:51 | Outpatient (CLI) | payer MEDICAID, SELFPAY ==
[2020-03-31 11:08] VITALS: BMI 17.9
--- NOTE | 2020-07-12 07:59 | US_ITS ---
STUDY: ABDOMINAL ULTRASOUND - RIGHT UPPER QUADRANT REASON FOR VISIT: Male, 24 years old abnormal LFTs TECHNIQUE: Ultrasound evaluation of the right upper quadrant was performed with real-time and static marks-scale imaging. TECHNICAL QUALITY: Adequate. COMPARISON: None. FINDINGS: Liver: The liver measures 16.6 cm. There is normal echogenicity of the liver. The bile ducts are within normal limits. There is hepatic color flow. The direction of portal flow is hepatopetal. There is no demonstrated mass lesion. Gallbladder: Normal distended gallbladder. The gallbladder wall measures 2.2 mm. There is a negative sonographic Cardenas''s sign. There is no pericholecystic fluid. There are no gallstones. Common Bile Duct (C.B.D.): The common bile duct measures 5.1 mm. Pancreas: Normal size of the head, body and tail of the pancreas. There is normal echogenicity of the pancreas. There is no demonstrated pancreatic mass or cyst. Right Kidney: Normal size of the right kidney. The right kidney measures 11.8 x 4.9 x 4.8 cm. Normal renal cortex. The right cortex measures 1.5 cm. There is no demonstrated renal mass or cyst. There is no right hydronephrosis. US/Abdomen Limited IMPRESSION: Normal right upper quadrant ultrasound examination. Electronically Signed: Benjamin Sarmiento MD at 10:33 EDT , Service support ,
[2020-07-12 09:27] LABS: Amphetamine Urine VISTA NEGATIVE (<1000 ng/mL); Barbiturate Urine VISTA NEGATIVE (< 200 ng/mL); Benzodiazepine Urine VISTA NEGATIVE (< 200 ng/mL); Cocaine Urine VISTA NEGATIVE (< 300 ng/mL); Ecstacy Urine VISTA NEGATIVE (< 500 ng/mL); Methadone Urine VISTA NEGATIVE (< 300 ng/mL); PCP Urine VISTA NEGATIVE (< 25 ng/mL); THC Urine VISTA NEGATIVE (< 50 ng/mL); Vista UDS pH Range 5
[2020-07-14 20:08] LABS: Comment 1a (.); Hepatitis A AB, Total Positive (Negative); Hepatitis A IgM Antibody Negative (Negative)
== END ==
PROVIDERS: Referring Provider Internal Medicine Infectious Disease; Visit Provider Internal Medicine Infectious Disease
DX: B18.2 Chronic viral hepatitis C (principal)
CPT/HCPCS: 76705; 80307; 86708; 86709; 87902

== ENCOUNTER → 2020-10-23 07:51 | Outpatient (CLI) | payer MEDICAID, SELFPAY ==
[2020-10-23 09:21] LABS: AST(SGOT) 17 U/L (15-37); Alanine Aminotransfer ALT/SGPT 27 U/L (16-61); Albumin, Serum 4.3 g/dL (3.2-5.0); Alkaline Phosphatase 53 U/L (45-117); Bilirubin, Direct 0.22 mg/dL (0.00-0.30); Globulin 3.2 g/dL (2.2-4.2); Protein, Total 7.5 g/dL (6.4-8.2)
[2020-10-25 16:09] LABS: HCV Quant. RNA PCR HCV Not Detected IU/mL (.)
== END ==
PROVIDERS: Referring Provider Internal Medicine Infectious Disease; Visit Provider Internal Medicine Infectious Disease
DX: B18.2 Chronic viral hepatitis C (principal)
CPT/HCPCS: 36415; 80076; 87522

== ENCOUNTER → 2020-12-14 11:52 | Outpatient (CLI) | payer MEDICAID, SELFPAY ==
[2020-12-16 21:07] LABS: HCV Quant. RNA PCR HCV Not Detected IU/mL (.)
== END ==
PROVIDERS: Referring Provider Internal Medicine Infectious Disease; Visit Provider Internal Medicine Infectious Disease
DX: B18.2 Chronic viral hepatitis C (principal)
CPT/HCPCS: 36415; 87522

== ENCOUNTER 2021-02-15 07:59 | Emergency (ER) | payer MEDICAID, SELFPAY ==
[2021-02-15 08:00] VITALS: BP 127/93; PULSE 68; RESP 16; TEMP 36.3; O2SAT 97; BMI 20.1
--- NOTE | 2021-02-15 08:11 | EDS_ITS ---
HPI HPI - URI History of Present Illness Chief Complaint: Ear Problem Detail of Chief Complaint: Right ear pain with drainage and decreased hearing Informant: patient Onset/Context/Timing Onset: Days (Onset 4 days ago) Context: Sudden Onset Timing: Continuous Quality: Drainage from ear and pain Location: Right Current Severity: Mild Maximum Severity: Severe Worsened by: - (Touching or pulling of ear); Not Worsened By Swallowing, Eating Solids and Drinking Liquids Relieved by: - (Nothing) Associated Symptoms Associated Symptoms: Negative for Nasal Congestion, Headache, Sinus Pressure, Myalgias, Nausea, Vomiting, Diarrhea, Shortness of Breath and Chest Pain Narrative Narrative: Patient is a 25-year-old male presents with right ear pain. He occasionally uses Q-tips. He denies history of diabetes. He denies symptoms of diabetes. He denies fever, chills night sweats. He reports decreased hearing. He states he placed toilet paper in his right external auditory canal because of the amount of drainage. He has no other complaints. Prior similar symptoms: No Recent Illness/Hospitalization: No ROS ROS ED Constitutional Constitutional ED: Denies chills, fever(s), subjective, sweats or weight loss Eyes Eyes: Denies blurry vision, change in vision or diplopia ENT ENT ED: Reports ear pain right; Denies rhinorrhea or sore throat Respiratory/Chest Respiratory/Chest: Denies cough or dyspnea Gastrointestinal Gastrointestinal: Denies nausea or vomiting Integumentary Denies rash Hematologic/Lymphatic Hematologic/Lymphatic: Denies easy bleeding or easy bruising PFSH PFSH Medical History Asthma Allergy/AdvReac Type Severity Reaction Status Date / Time Sulfa (Sulfonamide Allergy Swelling Verified 02/15/21 08:02 Antibiotics) Surgical History no surgical history no surgical history Social History (Updated 02/15/21 @ 08:[address] Marcial Durbin MD) household members: friend(s) Smoking Status: Current every day smoker substance use type: does not use EXAM Physical Exam Const Vital Signs: 02/15/21 08:00 Temperature 97.4 F L Temperature Source Temporal Pulse Rate 68 Respiratory Rate 16 Blood Pressure 127/93 H Blood Pressure Mean 104 Pulse Ox 97 Oxygen Delivery Method Room Air Positive well nourished and well developed General Appearance ED: well developed and NAD; Negative for pallor HEENT Reports moist mucous membranes normocephalic and atraumatic External Ear: external ear abnormal auricular tenderness and no preauricular adenopathy External Auditory Canal: EAC's abnormal right edema, tenderness and otic discharge Tympanic Membrane ED: Yes TM normal on the left and other Unable to visualize the right TM because of narrowing of the auditory canal and the amount of drainage. Furthermore there was toilet paper that was impacted that had to be removed with cerumen spoon. Eyes PERRL and EOMs intact bilaterally General Eye ED: Negative for pale conjunctiva or scleral icterus Neck no lymphadenopathy, supple, no meningeal signs and no JVD Resp normal respiratory effort Cardio Rate: regular rate Rhythm: regular rhythm Neuro oriented x3 and CN's II-XII intact bilaterally Sensorium / Orientation: alert Psych mental status grossly normal Skin General Skin Exam: Negative for jaundice or pallor Lesions: no lesions Rashes: no rashes MDM MDM MDM Narrative Medical decision making narrative: Patient has otitis externa right ear. There was toilet paper in the auditory canal that was removed with cerumen spoon. An ear wick was placed and patient was treated with ciprofloxacin ophthalmic solution. He was instructed to follow-up with his doctor in 4 to 5 days if the wick does not fall out. Discharge Plan Triage Chief Complaint: Ear Problem ED Provider: Marcial Durbin Dx/Rx/DC Orders Clinical Impression: Otitis externa of right ear, Foreign body in right auditory canal Instructions: ED Foreign Body, Ear Canal (Removed), ED External Ear Infection (Adult) Primary Care Provider: [facility] Adelaide Mcdermott Referrals: [facility] Adelaide Mcdermott [Primary Care Provider] - 5-7 Days Activity Restrictions/Additional Instructions: If the ear wick does not fall out after 5 days follow-up with [facility] to have the ear wick removed Disposition Disposition: Home, Self Care
[2021-02-15] MEDS: Ciprofloxacin 0.3% 2.5ml Bottle 4 DRP RIGHT EAR (08:28)
== END 2021-02-15 08:37 | disposition home or self-care (01) ==
LOC: ED 08:24
PROVIDERS: Emergency Provider Emergency Medicine
DX: H60.91 Unspecified otitis externa, right ear (principal); S00.451A Superficial foreign body of right ear, initial encounter; F17.200 Nicotine dependence, unspecified, uncomplicated; X58.XXXA Exposure to other specified factors, initial encounter
CPT/HCPCS: 99282

== ENCOUNTER 2021-02-28 20:29 | Emergency (ER) | payer MEDICAID, SELFPAY ==
[2021-02-28 20:30] VITALS: BP 145/83; PULSE 81; RESP 14; TEMP 36.4; O2SAT 95; BMI 20.5
== END 2021-03-01 01:25 | disposition left against medical advice (07) ==
LOC: ED 03-01 01:36
DX: Z53.21 Procedure and treatment not carried out due to patient leaving prior to being seen by health care provider (principal)

== ENCOUNTER 2021-10-15 21:05 | Inpatient (IN) | payer BC, MEDICAID, SELFPAY ==
[2021-10-15 21:06] VITALS: BP 143/87; PULSE 110; RESP 16; TEMP 36.4; O2SAT 98; BMI 19.3
--- NOTE | 2021-10-15 21:47 | EX.ED.SAOD ---
HPI History of Present Illness Chief Complaint: Substance Abuse Informant: patient Onset/Context/Timing Onset: Month(s) Context: Gradual Onset Timing: Continuous Current Severity: Mild Maximum Severity: Mild Associated Symptoms Associated Symptoms: Negative for vomiting*, diarrhea*, fever* or rash* Narrative Narrative: 26-year-old male history of bipolar and schizoaffective disorder. History of IV drug abuse including heroin and prior methamphetamine abuse. Patient states he abuses Ativan and Xanax. Today thought he was having anxiety attack states he took nine 0.25 Ativan's that was someone else's prescription several hours ago. He is requesting detox. His last detox was for heroin abuse about 18 months ago. He denies recent illness. He denies recent hospitalization. He has no other complaints. Prior similar symptoms: Yes Recent Illness/Hospitalization: No PFSH PFSH Medical History Asthma Bipolar disorder Depression Schizophrenia Smoker Substance abuse Home Medications NK 02/15/21 [History Last Taken Unknown] Allergy/AdvReac Type Severity Reaction Status Date / Time Sulfa (Sulfonamide Allergy Swelling Verified 10/15/21 21:08 Antibiotics) Social History household members: friend(s) Smoking Status: Current every day smoker tobacco type: cigarettes substance use type: does not use ROS ROS ED ROS Narrative Denies recent illness. Review of Systems ROS Unobtainable: Denies due to encephalopathy Constitutional Constitutional ED: Denies chills or fever(s) Eyes Eyes: Denies blurry vision ENT ENT ED: Denies ear pain Cardiovascular Cardiovascular: Denies chest pain Respiratory/Chest Respiratory/Chest: Denies cough or dyspnea Gastrointestinal Gastrointestinal: Denies abdominal pain Genitourinary Genitourinary ED: Denies dysuria Musculoskeletal Musculoskeletal: Denies arthralgias Integumentary Denies abscess Neurologic Neurologic: Denies headache(s) Psychiatric Psychiatric: Denies anxiety Endocrine Endocrinology: Denies cold intolerance Hematologic/Lymphatic Hematologic/Lymphatic: Denies easy bleeding Allergic/Immunologic Allergic/Immunologic ED: Denies mouth swelling EXAM Physical Exam Narrative Exam Narrative: 26-year-old male no acute distress. Vital signs stable afebrile. H EENT exam unremarkable. Moist Riis membranes. Neck nontender no lymphadenopathy. Lungs clear to auscultation bilaterally. Heart regular rhythm and 100 no murmur. Abdomen soft nontender normal bowel sounds no peritoneal signs. Moving all 4 extremities. Calves nontender without edema or cords. No track adams. Normal range of motion. Normal motor strength. Back nontender. Neurologically awake alert no focal motor deficits. Const Vital Signs: 10/15/21 21:06 Temperature 97.5 F L Temperature Source Temporal Pulse Rate 110 H Respiratory Rate 16 Blood Pressure 143/87 H Blood Pressure Mean 105 Pulse Ox 98 Oxygen Delivery Method Room Air Positive well nourished and well developed; Negative for obese, cachectic, contractures or unkempt General Appearance ED: well developed and NAD; Negative for unkempt, cachectic, contractures or pallor Nutritional Appearance: Negative for cachectic or obese HEENT Reports moist mucous membranes; Denies dry mucous membranes atraumatic; Negative for trauma Mouth ED: No dry mucous membranes Mouth: No dry mucous membranes Eyes PERRL and EOMs intact bilaterally General Eye ED: Negative for pale conjunctiva or scleral icterus Neck no lymphadenopathy, supple and no JVD Thyroid: Negative for tender Lymph Lymphatic: no lymphadenopathy noted; Negative for lymphadenopathy Chest Wall inspection of chest normal and palpation of chest normal Resp normal respiratory effort and clear to auscultation bilaterally Effort and Inspection: Negative for retractions Auscultation: Negative for rales, rhonchi or wheezes Cardio regular rate, regular rhythm, S1 normal heart sound, S2 normal heart sound and no murmurs Rate: tachycardic; Negative for bradycardia GI soft to palpation, non-tender, non-distended and no masses Inspection: Negative for abdominal distention Auscultation: Negative for hyperactive bowel sounds Palpation: Negative for tender, guarding or rigid Bladder / Kidney Exam: No other Back/Spine no CVA tenderness General Back: Negative for CVA tenderness Cervical Spine: Negative for cervical spine tenderness Thoracic Spine / Upper Back: Negative for thoracic spinal tenderness Lumbar Spine / Lower Back: Negative for lumbar spinal tenderness Extremity Extremity Narrative: Moving all 4 extremities. Calves are nontender without edema or cords. General Extremety ED: Negative for edema or tenderness General Extremity: Negative for edema Neuro oriented x3, CN's II-XII intact bilaterally and no sensory deficits noted Sensorium / Orientation: alert, oriented to person, oriented to place and oriented to time; Negative for confused, lethargic, stuporous or other Speech: speech normal Motor Exam: strength 5/5 throughout Psych mental status grossly normal and thought process normal Appearance: Negative for unkempt Attitude: No belligerent, No agitated, No aggressive and No hostile Mood & Affect: Negative for depressed, anxious or tearful Skin General Skin Exam: Negative for jaundice or pallor Lesions: no lesions Rashes: no rashes Trauma: Negative for abrasion MDM MDM MDM Narrative Medical decision making narrative: 26-year-old male underlying drug abuse history and psychiatric history. Requesting detox for benzodiazepine abuse. I have already spoken to the hospitalist. Patient will be admitted. He has a benign exam at this time. Discharge Plan Triage Chief Complaint: Substance Abuse ED Provider: Huber Schumacher Dx/Rx/DC Orders Clinical Impression: Active substance abuse, Polysubstance dependence, Desire for detoxification, Bipolar 1 disorder Prescriptions: No Action NK Primary Care Provider: Roxie Julio Referrals: Roxie Julio, [facility] [Primary Care Provider] - Disposition Disposition: Acute Care Hospital [facility]
--- NOTE | 2021-10-15 21:50 | PCM.HP.STD ---
[facility] - General General Date of Admission: 10/15/21 Date of Service: 10/15/21 Chief Complaint: Desire for detoxification HPI Narrative MASOUD GARCIA, is a 26 M with a significant history of asthma; polysubstance abuse; schizoaffective/schizophrenia disorder and tobacco abuse who presents to the emergency department with help with benzo detoxification. He reports withdrawal symptoms of feeling hot and cold all day. Reportedly he has been abusing benzodiazepine for the last 2 months. He takes benzodiazepine by mouth and also intranasally (snorts). He takes both Xanax and Ativan. 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 His sister has been giving patient benzodiazepine so as to deter patient from using heroin or methamphetamine. He uses benzodiazepine about 3-4 times per day. Last time he used was about 2 hours prior to presentation. With his last use he took about 6 tablets by mouth and snorted 1 pill because he felt he was in panic attack. Heroin use: He has been using heroin about 2-4 times per week. He shoots the heroin. He has been using heroin for about 8 years. Last time he used heroin was a week before presentation. Methamphetamine use: He shoots methamphetamine. He has been using methamphetamine since age 13. Last time he used methamphetamine was last week. Typically he uses it daily. [facility] Medical History Asthma Bipolar disorder Depression Schizophrenia Smoker Substance abuse Home Medications NK 02/15/21 [History Last Taken Unknown] Allergy/AdvReac Type Severity Reaction Status Date / Time Sulfa (Sulfonamide Allergy Swelling Verified 10/15/21 21:08 Antibiotics) Family History Other Cancer Surgical History no surgical history no surgical history Social History household members: friend(s) Smoking Status: Current every day smoker tobacco type: cigarettes substance use type: marijuana, heroin and amphetamines ROS ROS Narrative Pertinent positives and pertinent negatives as noted in HPI. All other systems were reviewed and are negative Vital Signs Vital Signs Vital Signs: 10/15/21 21:06 Temperature 97.5 F L Temperature Source Temporal Pulse Rate 110 H Respiratory Rate 16 Blood Pressure 143/87 H Blood Pressure Mean 105 Pulse Ox 98 Oxygen Delivery Method Room Air Weight Weight: 68.353 kg Body Mass Index (BMI) 19.3 Physical Exam Narrative Physical exam: General: Well-nourished, well-developed. Head: Normocephalic, atraumatic, no tenderness Eyes: Vision is grossly intact. EOMI ENT, no trauma, moist mucous membranes, no rhinorrhea Neck: Nontender, full range of motion, no spinal tenderness, deformities, step-off CVS: Regular rate and rhythm. S1-S2 present. No murmur, gallop or rub. Respiratory : clear to auscultation bilaterally, chest wall nontender, no wheezing Abdomen: Soft, nontender, nondistended, normal bowel sounds, no masses : Deferred Back: Nontender, no CVA tenderness, no midline spinal tenderness, deformities, step-offs Extremities: Nontender full range of motion, no trauma Skin: Needle track adams on right antecubital fossa. Normal color, no trauma, abrasions Neuro: Alert, oriented, cranial nerves II through XII grossly intact. Psychiatry: Normal mood. Normal affect. Not depressed. Not anxious. Assessment & Plan Assessment/Plan (1) Polysubstance dependence: (2) Active substance abuse: (3) Benzodiazepine abuse: (4) Desire for detoxification: PLAN: Plan Benzo dependence and desire for detoxification Patient be started on phenobarbital and other adjunctive medications: Gabapentin as needed; dicyclomine as needed; Vistaril as needed; Imodium as needed; trazodone as needed; Zofran as needed; scheduled thiamine; and schedule folic acid. Monitor CIWA score Tobacco abuse Counseled Nicotine patch prescribed. Heroin abuse and methamphetamine use Counseled Marijuana abuse Counseled Elevated blood pressure without diagnosis hypertension Trend blood pressures. DVT prophylaxis Low risk Encourage to ambulate Charges/Coding Visit Charges Inpatient E&M: 44695 Init Hosp L2
[2021-10-15 22:18] VITALS: BP 132/80; PULSE 87; RESP 16; TEMP 36.6; O2SAT 97
[2021-10-15 22:34] VITALS: BMI 19.7
[2021-10-15 22:43] VITALS: BP 124/77; PULSE 82; RESP 16; TEMP 36.8; O2SAT 97
[2021-10-15] MEDS: traZODone 100 MG Tablet PO (23:05)
[2021-10-15] MEDS: Phenobarbital 32.4 MG Tablet 64.8 MG PO (23:06)
[2021-10-15] MEDS: Gabapentin 300 MG Capsule PO (23:06)
[2021-10-15] MEDS: hydrOXYzine PAM 25 MG Capsule 50 MG PO (23:06)
[2021-10-16 03:03] VITALS: BP 108/53; PULSE 85; RESP 18; TEMP 36.9; O2SAT 98
[2021-10-16] MEDS: Phenobarbital 32.4 MG Tablet 64.8 MG PO ×6 (03:03→21:48)
[2021-10-16 09:11] VITALS: BP 125/69; PULSE 71; RESP 14; TEMP 36.9; O2SAT 97
[2021-10-16] MEDS: Thiamine Hydrochloride 100 MG Tablet PO (09:14)
[2021-10-16] MEDS: Folic Acid 1 MG Tablet PO (09:14)
--- NOTE | 2021-10-16 11:17 | PCM.PN.HOSP ---
Subjective Subjective Follow-up on acute benzodiazepine withdrawal: Patient was seen and examined. He denied any new complaints. No acute events overnight. Objective Data Objective Data Vital Signs: Vital Signs Temp Pulse Resp BP Pulse Ox O2 Del Method 98.4 F 71 14 125/69 H 97 Room Air 10/16/21 09:11 10/16/21 09:11 10/16/21 09:11 10/16/21 09:11 10/16/21 09:11 10/16/21 09:11 Oxygen Delivery Method Room Air Weight: 69.7 kg Body Mass Index (BMI) 19.7 Intake & Output: Intake and Output for Last 24 Hours 10/14/21 10/15/21 10/16/21 23:59 23:59 23:59 Intake Total 220 / 220 Balance 220 / 220 Physical Exam Narrative Physical exam: General: Alert, Oriented x3, Cooperative, No apparent distress HEENT: Atraumatic Oral: Moist Mucosa Neck: Supple Lungs: Clear to auscultation Cardiovascular: HS I+II, regular, no murmurs Abdomen: Bowel Sounds Present, Soft, Non Tender Extremities: No edema Skin: No rashes, No breakdown Neurological: Grossly intact Psych/Mental Status: Appropriate Assessment & Plan Assessment/Plan (1) Polysubstance dependence: (2) Active substance abuse: (3) Benzodiazepine abuse: (4) Desire for detoxification: PLAN: Plan 1. Acute benzodiazepine withdrawal, stable, continue to monitor on the phenobarb protocol 2. Nicotine dependence, continue on replacement 3. Polysubstance abuse, counseled to quit 4. DVT prophylaxis?low risk, early ambulation recommended Charges/Coding Visit Charges Inpatient E&M: 01682 Subs Hosp L2
[2021-10-16 14:39] VITALS: BP 132/74; PULSE 71; RESP 14; TEMP 36.7; O2SAT 98
[2021-10-16] MEDS: Gabapentin 300 MG Capsule PO (18:50)
[2021-10-16 21:40] VITALS: BP 121/56; PULSE 73; RESP 16; TEMP 37; O2SAT 97
[2021-10-16] MEDS: traZODone 100 MG Tablet PO (21:48)
[2021-10-17 02:09] VITALS: BP 122/72; PULSE 74; RESP 16; TEMP 36.5; O2SAT 97
[2021-10-17] MEDS: Phenobarbital 32.4 MG Tablet 64.8 MG PO ×4 (02:13→15:03)
[2021-10-17] MEDS: hydrOXYzine PAM 25 MG Capsule 50 MG PO ×2 (06:12→15:03)
[2021-10-17] MEDS: Thiamine Hydrochloride 100 MG Tablet PO (08:27)
[2021-10-17] MEDS: Folic Acid 1 MG Tablet PO (08:27)
[2021-10-17 08:30] VITALS: BP 128/89; PULSE 74; RESP 18; TEMP 36.6; O2SAT 100
--- NOTE | 2021-10-17 09:16 | RAD_ITS ---
STUDY: X-RAY - RIGHT HAND REASON FOR EXAM: Male, 26 years old. [facility] head/knuckle injury -- right hand knuckle hit on window TECHNIQUE: 3 view(s) of the hand. COMPARISON: None. FINDINGS: Normal radiocarpal articulation. Normal distal radioulnar joint. Small healed avulsion fracture of the ulnar styloid. Normal visualized carpal bones. Normal carpal articulations Normal carpometacarpal articulation of the thumb. Normal second through fifth carpometacarpal joints. Normal metacarpi. Normal metacarpophalangeal joint of the thumb. Normal interphalangeal joint of the thumb. Normal proximal and distal phalanges of the thumb. Normal metacarpophalangeal joints of the second through fifth fingers. Normal proximal and distal interphalangeal joints of the second through fifth fingers. Normal phalanges of the second through fifth fingers. The soft tissue structures are unremarkable. RAD/Hand Min 3 Views IMPRESSION: There is a small healed avulsion fracture of the ulnar styloid. Electronically Signed: Pedro Sears MD at 13:12 EDT ,
--- NOTE | 2021-10-17 10:50 | ADDICTION ---
This worker met with pt to discuss d/c planning. Pt agreed to residential treatment. Pt was approved for the [facility] residential treatment in [place], [place]. They will provide transportation today between 12-1pm.
--- NOTE | 2021-10-17 11:21 | DCINST_ITS ---
Discharge Instructions Diet Discharge Diet: No restrictions Activity Discharge Activity: May Not Drive Dressing / Incision Call your doctor if you observe: Fever of 101 or Higher, Coldness, Increased Pain, Numbness or Tingling, Change in Color, Inability to urinate, Inability to have a bowel movement, Shortness of breath, Dizziness, Fainting spells, Swelling in the ankles, Chest pain, Prolonged hiccupping, Increased palpitations (irregular heartbeat), Calf discomfort and Uncontrolled pain Follow Up Care Test Results: Test results from this visit will be discussed in further detail at your follow- up appointment, if applicable. Discharge Plan Admission Admit Date/Time: 10/15/21 21:45 Primary Reason for Your Visit: Acute benzodiazepine withdrawal Attending Provider: Aaron Naik Primary Care Provider: Roxie Julio Consulting Providers: Roddy Anguiano ; Adilia Forrest Discharge Orders/Prescriptions Prescriptions: New thiamine HCl (vitamin B1) [Vitamin B-1] 100 mg Tablet 100 mg PO DAILYCM Qty: 0 0RF folic acid 1 mg Tablet 1 mg PO DAILY@0800 Qty: 0 0RF Referrals / Follow Up: Roxie Julio, MATT-C [Primary Care Provider] - Within 2 Weeks Disposition Disposition (needs filled in before D/C Order can be placed): Psychiatric Hospital or Unit
--- NOTE | 2021-10-17 11:33 | DS.PCM_ITS ---
Providers Date of Admission: 10/15/21 Date of Discharge: 10/17/21 Primary Care Physician: NANNETTE Delgado Reason For Visit: DESIRE FOR DETOXIFICATION Diagnosis Discharge Diagnosis (1) Polysubstance dependence: Status: Acute Code(s): F19.20 - Other psychoactive substance dependence, uncomplicated (2) Active substance abuse: Status: Acute Code(s): F19.10 - Other psychoactive substance abuse, uncomplicated (3) Benzodiazepine abuse: Status: Acute Code(s): F13.10 - Sedative, hypnotic or anxiolytic abuse, uncomplicated (4) Desire for detoxification: Status: Acute Medications at Discharge Home Medications folic acid 1 mg tablet 1 mg PO DAILY@0800 #0 tabs 10/17/21 thiamine HCl (vitamin B1) 100 mg tablet (Vitamin B-1) 100 mg PO DAILYCM #0 tabs 10/17/21 Hospital Course Summary of Care Provided Hospital Course: This is a 26-year-old patient with history of polysubstance use, asthma schizoaffective/schizophrenia admitted with benzodiazepine use and dependence. Patient took 9 tablets of Xanax before coming to ER as he felt that hospitals will not give benzodiazepine and he took it in order to avoid benzodiazepine withdrawal. Patient takes both Xanax and Ativan, excessively for last 2 months. Patient has a history of heroin and methamphetamine use in the past since age 13. Last use of IV heroin and methamphetamine a week before admission. Patient admitted on MedSurg floor. Started on benzodiazepine medical history admission order set which includes phenobarbitone along with other adjunctive medications including gabapentin. Patient noted seizure but impulsive episodes many window with right fist. Patient has right middle third metacarpal head swelling. X- ray of the right hand done and imaging individually reviewed. Does not seem any fracture but official report pending Patient is accepted for inpatient polysubstance use rehab in the process of being Discharge medication reconciliation done. Discharge follow-up instructions completed. Discharge process discussed with the patient and all questions were answered to patient's satisfaction. Total time spent, exact 35 minutes on discharge meds reconciliation, examination, coordination of care with nurses and ancillary staff, review of imaging and blood test and discussion with the patient on follow-up instructions. Physical Exam Narrative Seen and examined on the day of discharge. Patient has issues of impulsive disorder, other psychotic behavior including hallucination, disorganized behavior. He hit the window in the morning with right hand fist. He has swelling over right third metacarpal head. No ulcer or broken skin. Mild superficial swelling present. X-ray was done. Patient denies any history of seizure in the past or during this admission. Has visual and auditory hallucination.. Patient feeling cold and hot sensation and in crawling position. General: Awake, Oriented x3, Cooperative HEENT: Atraumatic, PERRLA, EOMI, Normocephalic Oral: No Gingival or Mucosal Lesions/ Ulcerations Neck: Supple, No JVD, Negative Carotid Bruits Lungs: Air entry diminished in bilateral lung bases. No crepitation/rhonchi Cardiovascular: Regular rate, Regular Rhythm, Normal S1, Normal S2, No murmurs Abdomen: Bowel Sounds Present, Soft, Non Tender, Non-Distended : No renal angle tenderness. No suprapubic tenderness. Extremities: No edema, Capillary Refill Less than 3 Seconds Skin: No ulcer. Musculoskeletal: Tenderness and swelling over right third metacarpal head. No discoloration. Capillary refill less than 3 seconds. Neurological: Cranial nerves II-XII grossly intact, DTR 2+/4. No focal neurological finding Psych/Mental Status: Psychotic behavior with hallucinations, impulsive act. Polysubstance use Medical Records Data Medical Nutrition Assessment Dietitian: Malnutrition Criteria Met Start: 10/16/21 12:03 Freq: Status: Active Protocol: Document 10/16/21 12:04 RMA (Rec: 10/16/21 12:04 RMA [id number]) Nutrition Malnutrition Evidence of Malnutrition Exists Yes Malnutrition (severe): Social/Behavioral/ Environmental Evidenced By Suboptimal Energy Intake ( Severe),Weight Loss (Severe) Clinical Problem Chronic Disease or Condition Related Malnutrition Etiology Severe protein-calorie malnutrition in the context of social circumstance related to excessive drug use/ inadequate oral intake Signs/Symptoms as evidenced by ~15% weight loss x past 3 months, BMI 19.7 , PO meeting less than 50% estimated nutrition needs x past 3-4 months per pt report and need for oral nutrition supplements Status Active Problem Recommendation Dietitian Recommendations/Changes Continue regular diet as ordered---will add magic cup w / lunch and dinner. Continue ensure enlive w/ medpass as ordered. Will add 240 ml ensure clear w / breakfast for tolerance. Weight / BMI Weight Weight: 153 lb 10.595 oz Body Mass Index (BMI) 19.7 D/C Instructions Discharge Diet: No restrictions Call your doctor if you observe: Fever of 101 or Higher, Coldness, Increased Pain, Numbness or Tingling, Change in Color, Inability to urinate, Inability to have a bowel movement, Shortness of breath, Dizziness, Fainting spells, Swelling in the ankles, Chest pain, Prolonged hiccupping, Increased palpitations (irregular heartbeat), Calf discomfort and Uncontrolled pain Meaningful Use Info Meaningful Use Diagnoses (Choose all that apply): None applicable Discharge Plan Admission Admit Date/Time: 10/15/21 21:45 Primary Reason for Your Visit: Acute benzodiazepine withdrawal Attending Provider: Aaron Naik Primary Care Provider: Roxie Julio Consulting Providers: Roddy Anguiano ; Adilia Forrest Discharge Orders/Prescriptions Prescriptions: New thiamine HCl (vitamin B1) [Vitamin B-1] 100 mg Tablet 100 mg PO DAILYCM Qty: 0 0RF folic acid 1 mg Tablet 1 mg PO DAILY@0800 Qty: 0 0RF Referrals / Follow Up: Roxie Julio, MATT-C [Primary Care Provider] - Within 2 Weeks Disposition Disposition (needs filled in before D/C Order can be placed): Psychiatric Hospital or Unit
[2021-10-17] MEDS: Gabapentin 300 MG Capsule PO (12:02)
[2021-10-17 14:15] VITALS: BP 143/81; PULSE 81; RESP 18; TEMP 37; O2SAT 96
--- NOTE | 2021-10-17 14:35 | PHA.DC.MR ---
Pharmacy Service has performed discharge medication reconciliation for this patient. The patient's discharge medication list was reviewed for discrepancies and discrepancies were resolved. Home Medications folic acid 1 mg tablet 1 mg PO DAILY@0800 #0 tabs 10/17/21 thiamine HCl (vitamin B1) 100 mg tablet (Vitamin B-1) 100 mg PO DAILYCM #0 tabs 10/17/21
== END 2021-10-17 17:18 | DRG 896 ==
LOC: ED 21:52 → MS3 22:28
PROVIDERS: Admitting Provider Hospitalist; Emergency Provider Emergency Medicine; PCP Nurse Practitioner Adult Health; Visit Provider Internal Medicine
DX: F13.239 Sedative, hypnotic or anxiolytic dependence with withdrawal, unspecified (principal); E43 Unspecified severe protein-calorie malnutrition; Z68.1 Body mass index [BMI] 19.9 or less, adult; F11.10 Opioid abuse, uncomplicated; F12.10 Cannabis abuse, uncomplicated; F17.210 Nicotine dependence, cigarettes, uncomplicated; F15.90 Other stimulant use, unspecified, uncomplicated; J45.909 Unspecified asthma, uncomplicated
CPT/HCPCS: 73130; 97802; 99283

== ENCOUNTER → 2021-12-09 | Outpatient (CLI) | payer BC, MEDICAID, SELFPAY ==
[2021-12-09 15:38] LABS: Hematocrit 43.6 % (40-54); Hemoglobin 15.3 g/dL (13.0-16.5); Mean Corp Hgb Conc 35.1 g/dL (32-36); Mean Corpuscular Volume 88.4 fL (80-94); Mean Platelet Vol. 10.6 fl (6.2-12.0); Platelet Count 246 K/mm3 (150-450); RBC Distribution Width SD 42.6 fl (35.1-43.9); Red Blood Count 4.93 M/mm3 (4.6-6.2); White Blood Count 8.4 K/mm3 (4.4-11.0)
[2021-12-09 16:28] LABS: ALB/GLOB Ratio 1.2 RATIO (0.9-2.4); AST(SGOT) 15 U/L (15-37); Alanine Aminotransfer ALT/SGPT 23 U/L (16-61); Albumin, Serum 4.2 g/dL (3.2-5.0); Alkaline Phosphatase 59 U/L (45-117); Anion Gap 6 (5-15); BUN 14 mg/dL (7-18); BUN/Creat Ratio 15.2 RATIO (10-20); Calcium,Total 8.8 mg/dL (8.5-10.1); Chloride 106 mmol/L (98-107); Creatinine, Serum 0.92 mg/dL (0.70-1.30); EST Glomerular Filtration Rate 104 mL/min (>60); Est Glom Filt Rate - Afr Amer 126 mL/min (>60); Globulin 3.6 g/dL (2.2-4.2); Glucose 75 mg/dL (74-106); Iron 129 ug/dL (65-175); Iron Binding Capacity,Total 397 ug/dL (250-450); PERCENT IRON SATURATION 32.5 % (15.0-55.0); Protein, Total 7.8 g/dL (6.4-8.2); Sodium Level 138 mmol/L (136-145); Thyroid Stim Hormone (TSH) 0.84 uIU/mL (0.358-3.74); Vitamin B12 354 pg/mL (211-911); Vitamin D,25 Hydroxy 30.3 ng/mL
[2021-12-09 17:59] LABS: Hemoglobin A1c 5.3 % (3.8-5.6)
[2021-12-10 06:48] LABS: Hepatitis C Antibody REACTIVE (Nonreactive)
== END | disposition home or self-care (01) ==
LOC: MTLAB 11:21
PROVIDERS: PCP Nurse Practitioner Adult Health; Referring Provider Counselor Mental Health; Visit Provider Counselor Mental Health
DX: F19.10 Other psychoactive substance abuse, uncomplicated (principal); R53.83 Other fatigue; E55.9 Vitamin D deficiency, unspecified; E61.1 Iron deficiency; Z79.899 Other long term (current) drug therapy
CPT/HCPCS: 36415; 80053; 82306; 82607; 82746; 83036; 83540; 83550; 84443; 85027; 86803

== ENCOUNTER 2022-11-27 15:13 | Emergency (ER) | payer BC, MEDICAID, SELFPAY ==
[2022-11-27 15:14] VITALS: BP 134/84; PULSE 69; RESP 16; TEMP 36.2; O2SAT 97; BMI 26.9
== END 2022-11-27 18:45 | disposition left against medical advice (07) ==
LOC: ED 18:49
DX: Z53.21 Procedure and treatment not carried out due to patient leaving prior to being seen by health care provider (principal)

== ENCOUNTER 2022-11-28 12:23 | Emergency (ER) | payer MEDICAID, SELFPAY ==
[2022-11-28 12:24] VITALS: BP 142/88; PULSE 69; RESP 18; TEMP 36.1; O2SAT 97; BMI 24.0
--- NOTE | 2022-11-28 12:32 | EX.ED.DYSGE1 ---
HPI History of Present Illness Chief Complaint: Abscess Informant: patient Narrative Narrative: Presents worsening swelling left ear over last week. He is staying at sober house. Came to ED yesterday however busy department left. No fevers. No piercings. No history of similar. Prior similar symptoms: No PFSH PFSH Medical History Active substance abuse Asthma Benzodiazepine abuse Bipolar 1 disorder Bipolar disorder Depression Desire for detoxification Polysubstance dependence Schizophrenia Smoker Substance abuse Home Medications folic acid 1 mg tablet 1 mg PO DAILY@0800 #0 tabs 10/17/21 [Rx Last Taken Unknown] thiamine HCl (vitamin B1) 100 mg tablet (Vitamin B-1) 100 mg PO DAILYCM #0 tabs 10/17/21 [Rx Last Taken Unknown] ciprofloxacin HCl 500 mg tablet (Cipro) 500 mg PO BID #14 tabs 11/28/22 [Rx Last Taken Unknown] ibuprofen 600 mg tablet 600 mg PO Q6H PRN PRN pain #20 TABLETS 11/28/22 [Rx Last Taken Unknown] Allergy/AdvReac Type Severity Reaction Status Date / Time Sulfa (Sulfonamide Allergy Swelling Verified 11/28/22 12:24 Antibiotics) Family History Other Cancer Surgical History no surgical history Social History household members: friend(s) Smoking Status: Current every day smoker tobacco type: cigarettes substance use type: marijuana, heroin and amphetamines ROS ROS ED Constitutional Constitutional ED: Denies chills, fever(s) or sweats Eyes Eyes: Denies change in vision ENT ENT ED: Denies dysphagia or sore throat Cardiovascular Cardiovascular: Denies chest pain, leg edema, palpitations or racing heartbeat Respiratory/Chest Respiratory/Chest: Denies cough, dyspnea or dyspnea on exertion Gastrointestinal Gastrointestinal: Denies abdominal pain, diarrhea, nausea or vomiting Genitourinary Genitourinary ED: Denies dysuria, hematuria or urinary frequency Musculoskeletal Musculoskeletal: Denies back pain, extremity pain or neck pain Integumentary Reports abscess and other Details: Ear ; Denies rash or wounds Neurologic Neurologic: Denies headache(s), paresthesias or weakness EXAM Physical Exam Const Vital Signs: 11/28/22 12:24 Temperature 97 F L Temperature Source Temporal Pulse Rate 69 Respiratory Rate 18 Blood Pressure 142/88 H Blood Pressure Mean 106 Pulse Ox 97 Oxygen Delivery Method Room Air Positive well nourished and well developed General Appearance ED: well developed and NAD HEENT Reports moist mucous membranes HEENT Narrative: Left outer ear tragus there is swelling swelling extending on to the outer external canal, closed comedone at the tip. no active drainage No surrounding erythema. TMs were normal normocephalic and atraumatic Eyes PERRL, EOMs intact bilaterally and conjunctivae normal General Eye ED: Yes normal appearance of both eyes Neck no lymphadenopathy and supple General: Negative for tenderness Chest Wall Chest: Negative for tenderness Resp normal respiratory effort and normal air movement Effort and Inspection: symmetric chest movement; Negative for respiratory distress Cardio regular rate, regular rhythm and no murmurs Peripheral Pulses: pulses 2+ throughout GI normal to inspection, nondistended, normoactive bowel sounds and non-tender Palpation: Negative for guarding or rebound tenderness present Back/Spine no CVA tenderness and no thoracic nor lumbar tenderness Extremity normal to inspection General Extremety ED: Negative for edema or tenderness General Extremity: Negative for edema Neuro oriented x3 and no sensory deficits noted Sensorium / Orientation: awake and alert Skin no rashes or lesions noted and no wounds MDM MDM MDM Narrative Medical decision making narrative: Interventions / MDM: Differential diagnosis: Tragus abscess, otitis externa Diagnosis considered but do not suspect: N/A My EKG interpretation: N/A Imaging independently reviewed and interpreted by myself: N/A External documents reviewed: N/A Test considered but not ordered:N/A ED course: Nontoxic vital stable on exam. Check abscess with closed comedone at the tip of the tragus. Discussed incision and drainage. With location cartilage region, he started on ciprofloxacin for infectious coverage. Incise and drainage performed however minimal output, will continue antibiotics anti-inflammatories and refer to ENT. Return precautions. All questions were answered. Procedure note: Verbal consent. Incision and drainage. Normal sterile conditions. Initial ChloraPrep and then Betadine prep of the skin. 2 cc 1% lidocaine used for tragal block. Straight incision at the end of the tragus was performed there is no exudates. No drainage. Attempted to express the induration however unable to. I extended the opening, additional 2 cc local block in the wound performed to help with analgesia. There is no drainage. 2 x 2 packing outer ear, hemostasis achieved. Patient tolerated procedure well. Re-evaluation: stable Disposition discussed with patient/family/significant other: Patient Case discussed with consulting clinician: N/A This note was generated with [employer] dictation software. It may contain incorrect words, spelling, and punctuation that were not noted in checking the note before signing. Discharge Plan Triage Chief Complaint: Abscess Other Complaint: Ear Problem ED Provider: Prasad Collins Dx/Rx/DC Orders Clinical Impression: Abscess of tragus of left ear Instructions: ED Abscess Incision And Drainage Prescriptions: New ciprofloxacin HCl [Cipro] 500 mg tablet 500 mg PO BID Qty: 14 0RF ibuprofen 600 mg tablet 600 mg PO Q6H PRN PRN (Reason: pain) Qty: 20 0RF No Action thiamine HCl (vitamin B1) [Vitamin B-1] 100 mg Tablet 100 mg PO DAILYCM Qty: 0 0RF folic acid 1 mg Tablet 1 mg PO DAILY@0800 Qty: 0 0RF [facility] Referrals: Mc Pan MD [Med Staff - Active Staff] - 3-[address] [facility] - Activity Restrictions/Additional Instructions: Status post incision and drainage. Minimal output. Take antibiotic as prescribed. Follow-up with Dr. Pan. If symptoms worsening or developing fevers return for reevaluation. Disposition Disposition: Home, Self Care
[2022-11-28] MEDS: Ciprofloxacin 500 MG Tablet PO (12:36)
[2022-11-28] MEDS: Lidocaine 1% (20 ml mdv) 20 ML Vial INFILT (12:36)
[2022-11-28 13:09] VITALS: BP 132/64; PULSE 72; RESP 16; TEMP 36.6; O2SAT 100
== END 2022-11-28 13:09 | disposition home or self-care (01) ==
PROVIDERS: Emergency Provider Emergency Medicine; Visit Provider Emergency Medicine
DX: H60.02 Abscess of left external ear (principal); F17.210 Nicotine dependence, cigarettes, uncomplicated; F12.90 Cannabis use, unspecified, uncomplicated
CPT/HCPCS: 99284

== ENCOUNTER 2023-02-21 11:47 | Emergency (ER) | payer MEDICAID, SELFPAY ==
[2023-02-21 11:48] VITALS: BP 146/98; PULSE 52; RESP 16; TEMP 36.8; O2SAT 97; BMI 21.7
--- NOTE | 2023-02-21 12:44 | EDS_ITS ---
<Statement entered by Cayla Hsu MD - 02/21/23 16:06> I have personally performed a face to face assessment of the patient and have reviewed the MARCELLUS Note. Patient presents for psychiatric clearance. Patient reportedly has been overdosing on fentanyl with family giving him Narcan. Patient states he does not care if he lives or dies. He was reportedly already seen by crisis with plan for transfer but needs medical clearance. Patient has no significant complaints at this time. Patient lying in bed no acute distress. Head and neck examination unremarkable. Heart regular rate and rhythm. Lung sounds are clear. Abdomen is soft with no focal tenderness. Lab work for psychiatric clearance is unremarkable. COVID test is negative. Patient did become agitated and threw his phone and was argumentative with staff. He was placed in restraints and given Geodon. Patient is medically cleared and we are awaiting placement. Patient be signed out to [facility] for further observation. HPI History of Present Illness Chief Complaint: Suicidal Narrative Narrative: 27-year-old male was sent in by the crisis therapist for evaluation for suicidal ideation. He states he snorts fentanyl and he overdosed twice on . His [id number] administered Narcan. He states he was not trying to overdose but he did not really care if he lived or . States he always has passive thoughts of suicidal ideation but he is very stressed around the holidays. He states his girl let him down and he does not want to live anymore. He has no active plan. He states he also uses meth with last use a couple days ago. He smokes cigarettes. Denies alcohol use. He states he is diagnosed with schizoaffective disorder and depression but is no longer on mental health medications. [facility] Medical History Active substance abuse Asthma Benzodiazepine abuse Bipolar 1 disorder Bipolar disorder Depression Desire for detoxification Polysubstance dependence Schizophrenia Smoker Substance abuse Allergy/AdvReac Type Severity Reaction Status Date / Time Sulfa (Sulfonamide Allergy Swelling Verified 02/21/23 11:47 Antibiotics) Family History Other Cancer Surgical History no surgical history Social History household members: friend(s) Smoking Status: Current every day smoker tobacco type: cigarettes substance use type: marijuana, heroin and amphetamines ROS ROS ED ROS Narrative Constitutional: Negative for fever, chills, malaise. CVS: Negative for chest pain. Respiratory: Negative for shortness of breath. GI: Negative for abdominal pain, nausea, vomiting. EXAM Physical Exam Narrative Exam Narrative: CONST: Patient sitting in no acute distress. EYES: Normal inspection. NECK: Normal inspection. RESP: No respiratory distress, CTAB. CVS: Regular rate and rhythm, no murmur, no gallop. SKIN: Color normal, no rash, warm, dry, intact. EXTREMITIES: Normal appearance, no pedal edema. NEURO: Oriented x4. PSYCH: Normal affect. Const Vital Signs: 02/21/23 11:48 Temperature 98.3 F Temperature Source Temporal Pulse Rate 52 L
--- NOTE | 2023-02-21 12:44 | EX.ED.DYSGE1 ---
HPI History of Present Illness Chief Complaint: Suicidal Narrative Narrative: 27-year-old male was sent in by the crisis therapist for evaluation for suicidal ideation. He states he snorts fentanyl and he overdosed twice on . His [id number] administered Narcan. He states he was not trying to overdose but he did not really care if he lived or . States he always has passive thoughts of suicidal ideation but he is very stressed around the holidays. He states his girl let him down and he does not want to live anymore. He has no active plan. He states he also uses meth with last use a couple days ago. He smokes cigarettes. Denies alcohol use. He states he is diagnosed with schizoaffective disorder and depression but is no longer on mental health medications. [facility] Medical History Active substance abuse Asthma Benzodiazepine abuse Bipolar 1 disorder Bipolar disorder Depression Desire for detoxification Polysubstance dependence Schizophrenia Smoker Substance abuse Allergy/AdvReac Type Severity Reaction Status Date / Time Sulfa (Sulfonamide Allergy Swelling Verified 02/21/23 11:47 Antibiotics) Family History Other Cancer Surgical History no surgical history Social History household members: friend(s) Smoking Status: Current every day smoker tobacco type: cigarettes substance use type: marijuana, heroin and amphetamines ROS ROS ED ROS Narrative Constitutional: Negative for fever, chills, malaise. CVS: Negative for chest pain. Respiratory: Negative for shortness of breath. GI: Negative for abdominal pain, nausea, vomiting. EXAM Physical Exam Narrative Exam Narrative: CONST: Patient sitting in no acute distress. EYES: Normal inspection. NECK: Normal inspection. RESP: No respiratory distress, CTAB. CVS: Regular rate and rhythm, no murmur, no gallop. SKIN: Color normal, no rash, warm, dry, intact. EXTREMITIES: Normal appearance, no pedal edema. NEURO: Oriented x4. PSYCH: Normal affect. Const Vital Signs: 02/21/23 11:48 Temperature 98.3 F Temperature Source Temporal Pulse Rate 52 L Respiratory Rate 16 Blood Pressure 146/98 H Blood Pressure Mean 114 Pulse Ox 97 Oxygen Delivery Method Room Air MDM MDM MDM Narrative Medical decision making narrative: Patient sent in by crisis for suicidal ideation and recent drug overdose. He has a history of untreated mental health problems. He is awake alert with stable vital signs. He states he has passive suicidal ideation but no active plan other than may be using drugs and overdosing. Labs ordered for medical clearance. CBC and BMP are within normal limits. Urine tox screen positive for amphetamines and cannabinoids. Alcohol negative. COVID-19 is negative. Patient is medically cleared for transfer to psychiatric facility. [place] slip has been filled out by the crisis therapist. At 3:15 PM patient became agitated, started pulling his stuff out of his bags and throwing it across the room. He could not be de-escalated safely despite speaking with him and is requiring multiple nurses in the room to handle him so I ordered Geodon 20 mg IM. Lab Data Attestation: I reviewed the patient's lab results. Labs: Laboratory Results - last 24 hr 02/21/23 02/21/23 12:40 12:48 WBC 7.4 RBC 4.98 Hgb 15.3 Hct 44.8 MCV 90.0 MCH 30.7 MCHC 34.2 RDW Std Deviation 40.2 RDW Coeff of Gabe 12.3 Plt Count 198 MPV 11.0 Immature Gran % (Auto) 0.100 Neut % (Auto) 52.1 Lymph % (Auto) 32.6 [place] % (Auto) 8.2 Eos % (Auto) 6.2 H Baso % (Auto) 0.8 Absolute Neuts (auto) 3.9 Absolute Lymphs (auto) 2.42 Nucleated RBC % 0 Sodium 136 Potassium 3.7 Chloride 104 Carbon Dioxide 30.0 Anion Gap 2 L BUN 8 Creatinine 0.92 Estim Creat Clear Calc 129.69 Est GFR (MDRD) Af Amer 125 Est GFR (MDRD) Non-Af 103 BUN/Creatinine Ratio 8.6 L Glucose 76 Calcium 9.0 Urine Opiates Screen NEGATIVE Urine Methadone Screen NEGATIVE Ur Barbiturates Screen NEGATIVE Ur Phencyclidine Scrn NEGATIVE Ur Amphetamines Screen POSITIVE H MDMA (Ecstasy) Screen NEGATIVE U Benzodiazepines Scrn NEGATIVE Urine Cocaine Screen NEGATIVE U Cannabinoids Screen POSITIVE H Ur Drug Screen Comment Ethyl Alcohol < 3.0 Discharge Plan Triage Chief Complaint: Suicidal ED Midlevel Provider: Angela Wooten ED Provider: Cayla Hsu Dx/Rx/DC Orders Clinical Impression: Depression with suicidal ideation, Polysubstance abuse [facility] Care [facility] -
[2023-02-21 13:13] LABS: Absolute Lymphocyte Count 2.42 X10^3/uL (0.83-4.51); Absolute Neutrophil Count 3.9 X10^3/uL (2.0-7.7); Basophil# 0.06 X10^3/uL; Basophil% 0.8 % (0-1); Eosinophil# 0.46 X10^3/uL; Eosinophils% 6.2 % (0-5); Hematocrit 44.8 % (40-54); Hemoglobin 15.3 g/dL (13.0-16.5); Lymphocyte # 2.42 X10^3/ul (0.83-4.51); Lymphocyte % 32.6 % (19-41); Mean Corp Hgb Conc 34.2 g/dL (32-36); Mean Corpuscular Hgb 30.7 pg (27.0-32.0); Monocyte# 0.61 X10^3/uL; Monocyte% 8.2 % (0-10); NRBC Flagged by Analyzer 0 % (0-5); Neutrophil # 3.86 X10^3/uL (2.7-7.7); Neutrophil % 52.1 % (47-70); Platelet Count 198 K/mm3 (150-450); RBC Distribution Width CV 12.3 % (11.6-14.6); RBC Distribution Width SD 40.2 fl (35.1-43.9); Red Blood Count 4.98 M/mm3 (4.6-6.2); White Blood Count 7.4 K/mm3 (4.4-11.0)
[2023-02-21 13:25] LABS: Alcohol, Blood (Medical)-Serum < 3.0 mg/dL
[2023-02-21 13:33] LABS: Amphetamine Urine VISTA POSITIVE (<1000 ng/mL); Barbiturate Urine VISTA NEGATIVE (< 200 ng/mL); Benzodiazepine Urine VISTA NEGATIVE (< 200 ng/mL); Cocaine Urine VISTA NEGATIVE (< 300 ng/mL); Ecstacy Urine VISTA NEGATIVE (< 500 ng/mL); Methadone Urine VISTA NEGATIVE (< 300 ng/mL); PCP Urine VISTA NEGATIVE (< 25 ng/mL); THC Urine VISTA POSITIVE (< 50 ng/mL); Vista UDS pH Range 6
[2023-02-21 14:00] LABS: Anion Gap 2 (5-15); BUN 8 mg/dL (7-18); BUN/Creat Ratio 8.6 RATIO (10-20); Chloride 104 mmol/L (98-107); Creatinine, Serum 0.92 mg/dL (0.70-1.30); EST Glomerular Filtration Rate 103 mL/min (>60); Est Glom Filt Rate - Afr Amer 125 mL/min (>60); Estimated Creatinine Clearance 129.69 ml/min; Glucose 76 mg/dL (74-106); Potassium 3.7 mmol/L (3.5-5.1); Sodium Level 136 mmol/L (136-145)
--- NOTE | 2023-02-21 15:20 | ED.RN ---
THIS RN SEES PT RAISE HIS VOICE AND THROW HIS CELL PHONE ACROSS THE ROOM AND IT HIT THE WALL. THIS RN ASKS PT WHY HE WAS UPSET AND THROWING THINGS. PT AGGRAVATED AND STATES ITS BEEN 45 MINUTES AND MY PIZZA STILL ISNT HERE. THIS RN TALKS WITH PATIENT AND STATES THAT WE UNDERSTAND HE IS FRUSTRATED BUT WE CANNOT BE THROWING THINGS IN THE ROOM. PT BECOMES INCREASINGLY AGITATED AND GRABS BELONGINGS THAT WERE ON THE FLOOR AND STATES THAT HE IS LEAVING. THIS RN EXPLAINS TO PT THAT HE IS PINK SLIPPED AND HE IS UNABLE TO LEAVE AND PD WOULD BRING HIM RIGHT BACK HERE IF HE DID ATTEMPT TO LEAVE. THIS RN CALLS FOR HELP WHEN PT STATES THAT HE DOESN'T CARE AND HE IS LEAVING. AFTER MORE STAFF ENTERS THE ROOM, PT COOPERATIVE IN PUTTING HIS BELONGINGS INTO A BAG WHEN ASKED. PT STATES HE WANTS TO KEEP HIS HEADPHONES, THIS RN EXPLAINS HE CANNOT. THIS RN ALSO TELLS PT THAT HE NEEDS TO PUT HIS CELL PHONE INTO THE BELNGINGS BAG SINCE HE WAS USING AGGRESSIVE BEHAVIOR. PT STATES FUCK THAT, IM KEEPING THE PHONE. THIS RN AND LONA RN ATTEMPT TO GET PHONE INTO BAG. PT BECOMES INCREASINGLY AGGITATED AND GETS OUT OF THE BED AND SLAMS HIS FOREHEAD INTO THE WALL TWO TIMES. PT PLACED INTO THE BED BY STAFF AND RESTRAINED IN 4 POINT TORRIE. PLACED AT 1523. WILL CONTINUE TO MONITOR PTS VITALS AND NEED FOR RESTRAINTS.
[2023-02-21] MEDS: Ziprasidone IM 20 MG/ML VIAL IM (15:26)
[2023-02-21 15:48] VITALS: BP 123/82; PULSE 60; RESP 14; O2SAT 99
--- NOTE | 2023-02-21 17:53 | ED.RN ---
[facility] called asking about additional labs and ekg results given additional lab work ordered
[2023-02-21 18:10] LABS: CPK Total, Creatine Kinase 75 U/L (39-308)
[2023-02-21 20:07] VITALS: BP 115/69; PULSE 59; RESP 14; TEMP 36.7; O2SAT 100
--- NOTE | 2023-02-21 20:09 | ED.RN ---
CALLED [facility]YSIC[facility] TO SET UP TRANSPORT AT 1923. THEY GAVE AN ETA OF 0700 02/22/23, WE REQUESTED [facility]. PHYSICIANS CALLED BACK SAYING THAT [facility] DECLINED [facility] AND THEY INFORMED US THAT THEIR VALUE ADVISOR SAID THEY DIDN'T KNOW WHO ELSE WOULD TAKE THE PATENT. I THEN ATTEMPTED TO [facility] MY[facility]LF [facility] (THEY DECLINED), [facility] (THEY COULDN'T TRANSPORT BECAUSE OF INSURANCE). [facility] AND [facility] ARE ALL OWNED BY [facility]. [facility] ETA FOR PATENT IS 0700 FROM [facility].
[2023-02-22 00:07] VITALS: BP 112/70; PULSE 75; RESP 14; O2SAT 98
--- NOTE | 2023-02-22 02:26 | ED.RN ---
0226: this nurse asked by patient to contact his mom, Rafael Roy, with information about where he was being transferred, [facility]. attempted to call parent, no answer at this time, voicemail box full.
== END 2023-02-22 03:14 | disposition short-term general hospital (02) ==
PROVIDERS: Physician Assistant; Emergency Provider Emergency Medicine; Referring Provider Emergency Medicine; Visit Provider Emergency Medicine
DX: R45.851 Suicidal ideations (principal); F20.9 Schizophrenia, unspecified; F19.19 Other psychoactive substance abuse with unspecified psychoactive substance-induced disorder; F17.210 Nicotine dependence, cigarettes, uncomplicated; F32.A Depression, unspecified
CPT/HCPCS: 80048; 80307; 80320; 82550; 85025; 87811; 93005; 96372; 99285; G0480; J3486